=== PATIENT | male | born 1980 | race Caucasian/White ===

== ENCOUNTER 2017-05-23 16:19 | Emergency (ER) | payer OTHER ==
[~2017-05-23] VITALS: Ht 182.9 cm; Wt 90.7 kg
--- NOTE | ~2017-05-23 | EKG ---
[place] [address] [facility] [place] [address] ELECTROCARDIOGRAM REPORT Name: HUMBERTO GUTIERREZ Room #: DEP [facility]#: [id number] Admission: 05/23/17 Attend Phys: Discharge: 05/23/17 Date of : 84 Report #: [id number] THIS REPORT FOR: //name// [facility] ED Test Date: 2017-05-23 Test Time: 16:19:55 Pat Name: HUMBERTO GUTIERREZ Department: Room: Gender: M Rn Concurrent Review: [id number] : 1980 Requested By: Rosa Hickey Order Number: [id number] MD: Jose Perry Measurements Intervals [place] Rate: 96 P: 47 DE: 163 QRS: 49 QRSD: 107 T: 34 QT: 349 QTc: 441 Interpretive Statements Sinus rhythm Probable left atrial enlargement Left ventricular hypertrophy Compared to ECG 05/10/2016 18:59:43 Left ventricular hypertrophy now present Electronically Signed On 05-24-2017 16:40:14 CDT by Jose Perry [email or web address] <ELECTRONICALLY SIGNED> By: Jose Perry MD 05/24/17 1640 18 Jose Perry MD /NASIR
[~2017-05-23 16:19] MED LIST: BACTRIM DS TAB1 EACH PO; HYDROCODONE-AP1 EAC6 PO; KEFLEX500 MG PO; NORCO 5-325 TA1 EACH PO; ZOCOR40 MG PO
[2017-05-23 16:38] LABS: ABSOLUTE NEUTROPHILS 5.5 thou/uL (1.4-8.2); BASOPHILS 0.4 % (0.0-2.0); EOSINOPHILS 4.1 % (0.0-3.0); HEMATOCRIT 42.1 % (42.0-52.0); HEMOGLOBIN 14.6 gm/dL (14.0-18.0); LYMPHOCYTES 18.8 % (24.0-44.0); MCH 30.2 pg (26.0-34.0); MCHC 34.6 g/dL (28.0-37.0); MCV 87.4 fL (80.0-100.0); MONOCYTES 8.4 % (1.0-8.0); PLATELET COUNT 272 thou/uL (150-400); POLYS 68.3 % (36.0-66.0); RBC 4.82 mil/uL (4.50-6.00); RDW 13.1 % (10.5-14.5)
[2017-05-23 16:40] LABS: MANUAL DIFF NO
[2017-05-23 16:45] LABS: ANION GAP 7 mmol/L (7-16); BUN 9 mg/dL (7-18); CALCIUM 8.9 mg/dL (8.5-10.1); CHLORIDE 106 mmol/L (98-107); CO2 28 mmol/L (21-32); CREATININE 1.1 mg/dL (0.7-1.3); GLUCOSE 106 mg/dL (74-106); POTASSIUM 3.5 mmol/L (3.5-5.1); SODIUM 141 mmol/L (136-145)
[2017-05-23 16:53] LABS: TROPONIN-I < 0.04 ng/mL (<0.04-0.07)
[2017-05-23 17:18] VITALS: BP 147/79
== END 2017-05-23 17:26 | disposition home or self-care (01) ==
LOC: ER 16:19
PROVIDERS: Emergency Medicine
DX: R07.89 Other chest pain (principal); E78.00 Pure hypercholesterolemia, unspecified; I25.2 Old myocardial infarction; F17.210 Nicotine dependence, cigarettes, uncomplicated; Z87.19 Personal history of other diseases of the digestive system

== ENCOUNTER 2019-06-17 00:12 | Emergency (ER) | payer OTHER ==
[~2019-06-17] VITALS: Ht 182.9 cm; Wt 90.7 kg
[~2019-06-17 00:12] MED LIST changes: +DOXYCYCLINE 10100 MG PO
[2019-06-17] MEDS ORDERED: REFRESH TEARS15 ML OPHTHALMIC (00:52)
[2019-06-17] MEDS ORDERED: ERYTHROMYCIN E3.5 G2 OPHTHALMIC (00:52)
[2019-06-17] MEDS ORDERED: NORCO 5-325 TA1 EAC1 PO (00:52)
[2019-06-17 01:13] VITALS: BP 120/70
== END 2019-06-17 01:14 | disposition home or self-care (01) ==
LOC: ER 00:12
DX: S05.02XA Injury of conjunctiva and corneal abrasion without foreign body, left eye, initial encounter (principal); H16.133 Photokeratitis, bilateral; E78.5 Hyperlipidemia, unspecified; F17.210 Nicotine dependence, cigarettes, uncomplicated; Z91.030 Bee allergy status; X58.XXXA Exposure to other specified factors, initial encounter; Y93.9 Activity, unspecified; Y92.89 Other specified places as the place of occurrence of the external cause; Y99.8 Other external cause status

== ENCOUNTER 2019-12-23 19:34 | Inpatient (IN) | payer OTHER ==
[~2019-12-23] VITALS: Ht 182.9 cm; Wt 77.7 kg
--- NOTE | ~2019-12-23 | EMS ---
[place] [address] EMS Patient Care Report Name: HUMBERTO GUTIERREZ JR Room #: PRE [facility]#: [id number] Admission: Attend Phys: Discharge: Date of : 84 Report #: [id number] THIS REPORT FOR: //name// Report Transmitted: 12/23/2019 19:15 EMS Care Summary [place], [place]/[facility] Incident [id number] @ 12/23/2019 18:49 Incident Location [facility] [address] [place] [address] Patient HUMBERTO GUTIERREZ Male, 39 Years 1980 Patient Address [address] [place] [address] Patient History Hypertension (HTN),Stroke/CVA, Patient Allergies No known allergies, Chief Complaint CHEST PAIN/ GENRALIZED NUMBNESS Disposition Transported No Lights/[place] Dispatch Reason Chest Pain (Non-Traumatic) Transported To [facility] Narrative ARRIVED ON SCENE FOR A 39 YEAR OLD MALE PT WITH CHEST PAIN AND GENERALIZED NUMBNESS. PT CONTACT WAS MADE WITH THE PT'S FAMILY IN THE PT'S BEDROOM. PT WAS ALERT AND ORIENTATED TIMES 4 WITH A GCS OF 15. PT STATED HE LEFT [facility] FROM [facility] A WEEK AGO WITH SIMILAR SYMPTOMS AND LEFT DIANA 2 DAYS AGO AND WAS DIAGNOSED WITH LEFT LOWER LOBE PNEUMONIA. PT DENIED SHORTNESS OF BREATH, FEVER, OR A COUGH. PT ALSO DENIED NAUSEA OR RADIATING CHEST PAIN. PT STATED HE HAS [address] [place] [address] EMS Patient Care Report Name: HUMBERTO GUTIERREZ JR Room #: PRE ER M.R.#: [id number] Admission: Attend Phys: Discharge: Date of : 84 Report #: [id number] BEEN NUMB FOR THE PAST 3 DAYS AND WAS UNABLE TO WALK. PT WAS ASSISTED INTO A STAIRCHAIR AND WAS HELPED TO THE COT OUTSIDE. PT WAS PLACED ON THE COT IN A POSITION OF COMFORT AND WAS SECURED VIA 2 SEATBELTS. PT WAS TRANSPORTED TO AND LOADED INTO THE COT AND HOOKED UP TO THE MONITOR INCLUDING A 12 LEAD. PT WAS TRANSPORTED TO [facility] PER PT CHOICE WITH NO CHANGES EN ROUTE. PT WAS TAKEN TO ER BED 10 WHERE TRANSPORT REPORT WAS GIVEN TO THE RECEIVING STAFF. ER NURSE SIGNED FOR TRANSFER OF CARE AND PT WAS ABLE TO SIGN EMS DOCUMENTATION HIMSELF. EMS WENT BACK INTO SERVICE. Initial Vitals @19:13P: 98,CO: 5,SpO2: 99,NV Suspected: false @19:09P: 104,BP: 151/101, @19:20P: 102,R: 20,BP: 167/80,Pain: 8/10,GCS: 15,CO: 6,SpO2: 97,Revised Trauma: 12, @18:58P: 106,R: 20,BP: 150/95,Pain: 8/10,GCS: 15,CO: 2,SpO2: 100,Revised Trauma: 12, @19:09P: 102,Glucose: 120,SpO2: 99, Assessments @18:56MENTAL:Person Oriented,Time Oriented,Place Oriented,Event Oriented,SKIN:No Abnormalities,HEENT:Eyes: Left Pupil: 4-mm,Head/Face: Swelling,Eyes: Right: Other,Neck/Airway: No Abnormalities,LUNG SOUNDS:General: No Abnormalities,Left Upper: No Abnormalities,Right Upper: No Abnormalities,Left Lower: No Abnormalities,Right Lower: No Abnormalities,ABDOMEN:General: No Abnormalities,Left Upper: No Abnormalities,Right Upper: No Abnormalities,Left Lower: No Abnormalities,Right Lower: No Abnormalities,PELVIS//GI:No Abnormalities,EXTREMITIES:Left Leg: Abnormal Sensation,Right Arm: Weakness,Left Arm: Weakness,Right Arm: Abnormal Sensation,Right Leg: Weakness,Right Leg: Abnormal Sensation,Left Arm: Abnormal Sensation,Left Leg: Weakness,PULSE:Radial: 2+ Normal,NEURO:No Abnormalities,@19:25MENTAL:Place Oriented,Event Oriented,Person Oriented,Time Oriented,SKIN:No Abnormalities,HEENT:Eyes: Right: Other,Head/Face: Swelling,Eyes: Left Pupil: 4-mm,Neck/Airway: No Abnormalities,LUNG SOUNDS:General: No Abnormalities,Left Upper: No Abnormalities,Right Upper: No Abnormalities,Left Lower: No Abnormalities,Right Lower: No Abnormalities,ABDOMEN:General: No Abnormalities,Left Upper: No Abnormalities,Right Upper: No Abnormalities,Left Lower: No Abnormalities,Right Lower: No Abnormalities,PELVIS//GI:No Abnormalities,EXTREMITIES:Right Arm: Weakness,Left Arm: Abnormal Sensation,Left Arm: Weakness,Right Arm: Abnormal Sensation,Left Leg: Abnormal Sensation,Left Leg: Weakness,Right Leg: Weakness,Right Leg: Abnormal Sensation,PULSE:NEURO:No Abnormalities, Impression Chest Pain, Other (Non-Cardiac) Procedures [address] [place] [address] EMS Patient Care Report Name: HUMBERTO GUTIERREZ JR Room #: PRE M.R.#: [id number] Admission: Attend Phys: Discharge: Date of : 84 Report #: [id number] @19:1312-Lead ECGResponse: UnchangedSucceeded@18:56ALS AssessmentResponse: UnchangedSucceeded@19:15Saline Lock 5cc (18 ga) Site: Antecubital-LeftResponse: UnchangedSucceeded@19:12StairchairResponse: Unchanged Timeline 18:47,Call Received 18:47,Dispatch Notified 18:49,Dispatched 18:50,En Route 18:54,On Scene 18:56,At Patient 18:56,ALS Assessment,Response: UnchangedSucceeded, 18:58,BP: 150/95 M,PULSE: 106,RR: 20 R,SPO2: 100 Ox,ETCO2: ,BG: ,PAIN: 8,GCS: 15, 19:09,BP: / M,PULSE: 102,RR: R,SPO2: 99 Ox,ETCO2: ,B,PAIN: ,GCS: , 19:09,BP: 151/101 M,PULSE: 104,RR: R,SPO2: Ox,ETCO2: ,BG: ,PAIN: ,GCS: , 19:12,Stairchair,Response: Unchanged 19:13,12-Lead ECG,Response: UnchangedSucceeded, 19:13,BP: / M,PULSE: 98,RR: R,SPO2: 99 Ox,ETCO2: ,BG: ,PAIN: ,GCS: , 19:15,Saline Lock 5cc 18 ga Site: Antecubital-Left,Response: UnchangedSucceeded, 19:16,Depart Scene 19:20,BP: 167/80 M,PULSE: 102,RR: 20 R,SPO2: 97 Ox,ETCO2: ,BG: ,PAIN: 8,GCS: 15, 19:29,At Destination 19:52,Call Closed Disclaimer v1.1 Copyright 2020 [employer] This EMS Care Summary contains data elements from the applicable legal record (which may be displayed differently). It is designed to provide pertinent information for the following purposes: continuity of care, clinical quality, and state data reporting. The complete legal record is available to ED staff and administrators of the receiving hospital in ES's Patient Tracker. All data is provided "as is."
--- NOTE | ~2019-12-23 | EEG ---
[facility] [place] [address] ELECTROENCEPHALOGRAM Name: HUMBERTO GUTIERREZ Room #: 435-P ADM IN M.R.#: [id number] Admission: 12/23/19 Attend Phys: Miguel Ángel Gonsalez MD Discharge: Date of : 84 Report #: [id number] THIS REPORT FOR: //name// CC: [facility] physician/PCP Miguel Ángel Gonsalez INTERPRETATION: This patient is being evaluated for altered mental status. EEG was done by placing the electrode by standard 10-20 system of electrode placement. Both referential and sequential montages were used for recording. Background activity in this patient's EEG is about 7-8 Hz and 30 microvolts. It becomes slower than that. Photic stimulation was unremarkable. Throughout the record, no active epileptiform activity was noticed. IMPRESSION: This patient's EEG demonstrates intermixed slowing on both sides which is a nonspecific abnormality, which can occur with dementia, encephalopathy, effect of psychotropic medication, etc. Clinical correlation is recommended. By: [id number] Vishal Garner MD /nt
[~2019-12-23 19:34] MED LIST changes: +ERYTHROMYCIN E3.5 G2 OPHTHALMIC; +NORCO 5-325 TA1 EAC1 PO; +REFRESH TEARS15 ML OPHTHALMIC
[2019-12-23 19:35] VITALS: BP 152/96
[2019-12-23 19:51] LABS: BASOPHILS 0.6 % (0.0-2.0); EOSINOPHILS 5.2 % (0.0-3.0); HEMATOCRIT 40.9 % (42.0-52.0); HEMOGLOBIN 14.1 gm/dL (14.0-18.0); LYMPHOCYTES 17.8 % (24.0-44.0); MCH 30.2 pg (26.0-34.0); MCHC 34.4 g/dL (28.0-37.0); MONOCYTES 9.3 % (1.0-8.0); PLATELET COUNT 397 thou/uL (150-400); POLYS 67.1 % (36.0-66.0); RBC 4.65 mil/uL (4.50-6.00); RDW 13.1 % (10.5-14.5); WBC 11.9 thou/uL (4.0-11.0)
[2019-12-23 19:56] LABS: ANION GAP 6 mmol/L (7-16); BUN 9 mg/dL (7-18); CALCIUM 10.2 mg/dL (8.5-10.1); CHLORIDE 101 mmol/L (98-107); CO2 31 mmol/L (21-32); GLUCOSE 104 mg/dL (74-106); POTASSIUM 3.5 mmol/L (3.5-5.1); SODIUM 138 mmol/L (136-145)
[2019-12-23 20:06] LABS: ALBUMIN 3.2 g/dL (3.4-5.0); SGOT 31 U/L (15-37); SGPT 50 U/L (30-65); TOTAL BILIRUBIN 0.7 mg/dL (<0.1-1.0); TOTAL PROTEIN 7.5 g/dL (6.4-8.2); TROPONIN-I <0.06 ng/mL (<0.06)
[2019-12-24 00:11] VITALS: BP 148/83
[2019-12-24 01:47] VITALS: BP 123/69
--- NOTE | 2019-12-24 04:06 | NUR ---
PT ADMITTED FROM THE ED TO THE UNIT AT ABOUT 0050.PT IS A/O X4.PT IS UNABLE TO WALK DUE TO WEAKNESS.PT IS ON ROOM AND COMPLAAINS OF CHEST PAIN NON CARDIAC.PT IV ACCESS ON LAC 18G.PT HAS REDNESS AND DISCHARGE ON RT EYE.EKG DONE WITH NORMAL SINUS RHYTHM.ADMISSION EDUCATION AND ASSESSMENT COMPLETED AND CONSENTS SIGNS,PT SKIN INTACT.WILL CONTINUE TO MONITOR PER POC
[2019-12-24 04:42] VITALS: BP 140/86
[2019-12-24 08:20] VITALS: BP 141/77
[2019-12-24 16:54] VITALS: BP 121/66
--- NOTE | 2019-12-24 19:53 | NUR ---
VSS-AFEBRILE. LUNGS COURSE IN ALL OLIVEIRA BILATERALLY. CALM AND COOPERATIVE UNTIL END OF SHIFT. STATED THAT HE WANTED TO LEAVE AMA BACAUSE WE WERENT "DOING ANYTHING" TO HELP HIM. PATIENT WAS EDUCATED ON POC, SEEMEDCONFUSED AT TIMES. SECURITY CALLED DUE TO PATIENT SPITTING AND THROWING CALL LIGHT. CALMED. AND IS RESTING QUIETLY, BUT WAS INFORMED THAT HE NEEDS TO GIVE ANTIBIOTICS TIME TO WORK, HE VERBALIZED UNDERSTANDING. RIGHT EYE SWOLLEN, RED, AND HAS THICK, GREEN DISCHARGE. WARM COMPRESSES APPLIED ALL SHIFT, WELL PRESCRIBED EYE DROPS. POOR APPETITE. CALLS APPROPRIATELY FOR ANY NEEDED ASSISTANCE.
[2019-12-25 04:05] VITALS: BP 126/74
--- NOTE | 2019-12-25 05:24 | NUR ---
PT LYING IN BED. VOIDING PER URINAL. LORTAB PROVIDING PAIN RELIEF. RESTING COMFORTABLY. NO NEEDS VOICED. CALL LIGHT WITHIN REACH. FREQUENT OBSERVATION.
[2019-12-25 07:17] VITALS: BP 128/75
[2019-12-25 09:09] VITALS: BP 143/91
[2019-12-25 12:33] LABS: AMP/METHAMP POSITIVE (Negative); BARBITURATES Negative (Negative); BENZODIAZEPINES Negative (Negative); COCAINE Negative (Negative); METHADONE Negative (Negative); OPIATES POSITIVE (Negative); PCP Negative (Negative)
--- NOTE | 2019-12-25 15:41 | NUR ---
PT ADMITTED RELATED TO UNABLE TO WALK,REDNESS ON RIGHT EYE. CM REVIEWED CHART AND SPOKE WITH CARE TEAM. CM CALLED PT'S THIS AFTERNOON AND PT ANSWERED. CM ROLE INTRODUCED. PT STATED THAT HE WOULD TALK TO CM LATER. CM NOTIFIED NURSE. CM TO ATTEMPT PT TO PT TOMORROW. CM TO FOLLOW INDICATED WITH DC PLANNING. PT IS LISTED PATIENT PAY IS IS ANTICIAPTED THAT PT MAY NEED ASSISTANCE TO FILL MED UPON DC.
[2019-12-25 16:42] LABS: HEMOGLOBIN 14.2 gm/dL (14.0-18.0); MCHC 33.8 g/dL (28.0-37.0); MCV 88.8 fL (80.0-100.0); RBC 4.73 mil/uL (4.50-6.00); RDW 13.2 % (10.5-14.5); WBC 7.9 thou/uL (4.0-11.0)
[2019-12-25 17:08] VITALS: BP 132/52
--- NOTE | 2019-12-25 19:31 | NUR ---
VSS-AFEBRILE. LUNGS DIMINISHED IN ALL OLIVEIRA BILATERALLY, PLACED ON 2LNC FOR COMFORT. DEMANDS TO LEAVE AMA. INFORMED PATIENT THAT IF HE LEAVES AMA, DR GRAFF HAS STATED THAT HE WILL NOT BE READMITTED. PATIENTS MOTHER AND MARCELLOE HAVE BOTH REFUSED TO PICK HIM UP. AFTER BEING TOLD THIS INFORMATION, AND THAT [facility] WILL NOT PROVIDE A TAXI, HE SAID HE WOULD STAY. C/O GENERALIZED BODY ACHES AND PAINS, AND SOA. CAN BE RUDE AND OFFENSIVE WITH STAFF.
[2019-12-25 19:45] VITALS: BP 133/56
[2019-12-26 05:10] VITALS: BP 110/62
--- NOTE | 2019-12-26 05:30 | NUR ---
ASSESSED AT START OF SHIFT. PT RESTING IN BED. IV INTACT AND ABX GIVEN. PAIN MED GIVEN FOR GENERALIZIED PAIN. RT EYE RED AND SLIGHLTY SWOLLEN. EYE DROPS GIVEN. FALL PREC IN PLACE FOR WEAKNESS. CALL LIGHT IN REACH AND WILL CONT WITH POC TILL EOS.
[2019-12-26 07:07] LABS: HIV ANTIBODY Non Reactive (Non Reactive)
--- NOTE | 2019-12-26 07:23 | HC ---
[facility] [place] [address] CONSULTATION Name: HUMBERTO GUTIERREZ JR Room #: 447-P ADM IN M.R.#: [id number] Admission: 12/23/19 Attend Phys: Miguel Ángel Gonsalez MD Discharge: Date of : 84 Report #: [id number] THIS REPORT FOR: cc: SOPHIE - No family physician/PCP SOPHIE - No family physician/PCP Hollis Armstrong MD ~ CC: [facility] physician/PCP Miguel Ángel Gonsalez INFECTIOUS DISEASE CONSULTATION REASON FOR CONSULTATION: I was asked to evaluate concerning periorbital cellulitis and dental infection. HISTORY OF PRESENT ILLNESS: The patient is a 39-year-old with underlying history of recreational drug use. Most recently reports methamphetamine use. Also, has hypertension and hyperlipidemia. He has been sick for about 2 weeks. He has been in and out of the hospital for these same symptoms with weakness, dizziness, instability, some pharyngitis and hoarse voice with minimal cough. Does have some issues with swallowing. He has been worked up at both [facility] and [facility]. Apparently, he was incarcerated, and was taken back to [facility]. Unclear exactly his legal status. These initial symptoms were in May. Was recently at [facility], although left against medical advice. He has had CT scans of his head CTA of the head and neck as well as MRI scans, which showed no intracranial abnormalities. By history, has a negative echocardiogram. He has had an EEG and a transesophageal echocardiogram along with an EEG. He has had gastroesophageal reflux diagnosed. More recently was treated for healthcare-associated pneumonia. Again, left against advice, but did finish a course of doxycycline. Main complaint has been intermittent cough, difficulty swallowing and inability to walk. Denies any nausea, vomiting or diarrhea. He fell and hit his right eye. Now it is swollen and erythematous. Denies any recent IV drug use. He does smoke methamphetamines. No nausea, vomiting or diarrhea. No dysuria or frequency. No arthritis. No back pain. No previous psychiatric complaints. REVIEW OF SYSTEMS: A 14-point review of systems was negative other than what has been described above. ALLERGIES: BEE STINGS. MEDICATIONS: As noted on his DEC, now on vancomycin and Zosyn. PAST MEDICAL HISTORY: Surgery on his right shoulder, gastric ulcer, hyperlipidemia, [place] in 2001, MRSA right hip 2-3 years ago, hepatitis C, untreated. FAMILY HISTORY: Hypertension. [facility] [address] [place] [address] CONSULTATION Name: HUMBETRO GUTIERREZ Room #: 447-P [facility] IN M.R.#: [id number] Admission: 12/23/19 Attend Phys: Miguel Ángel Gonsalez MD Discharge: Date of : 84 Report #: [id number] SOCIAL HISTORY: Smoker of cigarettes. No alcohol or methamphetamine use. PHYSICAL EXAMINATION: VITAL SIGNS: He is afebrile and hemodynamically stable. GENERAL: He was lying in bed, did not want to get up, but he did respond and was able to give a reasonable history. HEENT: Right periorbital swelling with erythema and abrasions. He had small amount of drainage from his eye. There was ecchymosis in the region. Had evidence of conjunctivitis. Pupils are equal, round and reactive. No other skin lesions noted other than multiple tattoos. No palpable adenopathy. Eyes: Extraocular muscles intact. Mouth with mild posterior oropharynx injection. No specific weakness identified, was able to move his soft palate. NECK: Supple, with no thyromegaly or mass. LUNGS: Clear to auscultation. HEART: Regular, without murmur, gallop or rub. ABDOMEN: Soft, nontender with no hepatosplenomegaly or mass. GENITORECTAL: Not performed. EXTREMITIES: Without clubbing, cyanosis or edema. NEUROLOGIC: Cranial nerves were intact. Strength in his upper and lower extremities was symmetric and within normal limits. Deep tendon reflexes -1 on the right knee jerk, normal on the left. Sensation to touch both upper and lower extremities is normal. When I sat him up, he was able to get up on his own. Sitting to the side of the bed, he would lean toward the right. Ytre-az-gsod testing was normal. He is able to toe tap equally on both sides. Mood was within normal limits, although he kept asking to go home. LABORATORY STUDIES: Reviewed. Microbiology reports reviewed. MRI scan reviewed. Chest x-ray reviewed. Drug screen reviewed. CT of the head reviewed. IMPRESSION: A 39-year-old with complaints of weakness and inability to walk. Appears to have some ataxic component here for I am finding no focal muscle weakness. He does have swelling to his right eye that he reports trauma to. Also, has some posterior oropharynx injection, but no definite abscess evident. He has dental caries and apical abscesses noted on MRI scan. This process has been going on for several weeks. Other issue is his drug use, which may be a factor here as well. RECOMMENDATIONS: We will continue treatment for his sinusitis and apical abscesses. I would like Neurology to evaluate and assess for any other [facility] [address] [place] [address] CONSULTATION Name: HUMBERTO GUTIERREZ Room #: 447-P ADM IN M.R.#: [id number] Admission: 12/23/19 Attend Phys: Miguel Ángel Gonsalez MD Discharge: Date of : 84 Report #: [id number] structural abnormality. We will need to obtain further records from [facility] and [facility]. <ELECTRONICALLY SIGNED> By: Hollis Armstrong MD 12/26/19 0723 1530 1559 Hollis Armstrong MD /nt
[2019-12-26 08:39] VITALS: BP 113/70
--- NOTE | 2019-12-26 14:24 | NUR ---
CM CALLED INTO PT'S ROOM THIS DAY AND SPOKE WITH PT. HE INDICATED HE HAD BEEN LIVING IN A HOUSE WITH HIS SIG OTHER AND BROTHER WITH 3 STEPS TO ENTER WITH HANDRAIL. 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 ST SAW PT AND RECOMMENDED MECHSFT DIET WITH REG LIQUIDS. PT REFUSED OT. PT ATTEMPTED AMBULATION WITH PT BUT HAD LOB AND REFUSED TO REATTEMPT. PT INDICATED HE WANTED TO GO HOME AND REITERATED HE WANTED TO GO HOME TODAY. PT ASKED IF WE COULD GIVE HIM A WALKER ALTHOUGH PT HASN'T INDICATED HE IS SAFE FOR USE OF A FWW. 5N IS ASSESSING FOR POSSIBLE ADMISSION. NEURO SAW PT AND HE HAD AN MRI WITH CONTRAST THAT INDICATED THAT THERE ARE SOME LESIONS PRESENT. PT TO HAVE MRI OF CERVICAL, THORACIC AND LUMBAR SPINE. CM SPOKE WITH PT'S NURSE TO NOTIFY HER THAT PT INDICATED HE WANTED TO LEAVE. CM TO FOLLOW INDICATED WITH DC PLANNING.
[2019-12-26 16:26] VITALS: BP 113/59
[2019-12-26 19:35] VITALS: BP 137/70
--- NOTE | 2019-12-26 19:55 | NUR ---
REMAINS DEFIANT AND OCCASIONALLY STATES HE WANTS TO LEAVE AMA. ASSURED PATIENT THAT HE HAS THAT RIGHT, HE THEN DECIDES THAT HE WANTS TO STAY. REFUSED ALL THERAPIES TODAY, REFUSED SHOWER WELL. EDUCATED ON IMPORTANCE OF FOLLOWING THE PLAN OF CARE, AND ATTEMPTED TO EXPLAIN THE RESULTS OF SOME OF HIS TESTS, PATIENT FELL ASLEEP DURING THIS TIME. FALL PRECAUTIONS IN PLACE.
[2019-12-27 03:07] LABS: SYPHILIS AB Reactive (Non Reactive)
[2019-12-27 04:15] VITALS: BP 147/83
--- NOTE | 2019-12-27 04:28 | NUR ---
ASSESSED AT START OF SHIFT, VSS. IV INTACT AND ABX INFUISING. PAIN MEDS GIVEN FOR GENERALIZIED PAIN. AND NIGHT TIME XANAX GIVEN. PT SLEPT THROUGH THIS SHIFT. URINAL AT BEDSIDE DUE TO BLE WEAKNESS. WILL CONT TO MONITOR TILL EOS.
[2019-12-27 08:22] VITALS: BP 156/117
--- NOTE | 2019-12-27 11:39 | NUR ---
FAXED FACE SHEET TO KAMILA AT THE [facility] RECEIVED CONFIRMATION TO HELP WITH MEDICAID APPLICATION. DP TO FOLLOW.
--- NOTE | 2019-12-27 13:59 | NUR ---
CARE TEAM INDICATED THAT EKG WAS ORDERED DUE TO CO/ CHEST PAIN. PSYC CONSULTED PT IS REFUSING THERAPY AND STILL EXPRESSING DESIRE TO LEAVE [place] OR DISCHARGE. CM TO FOLLOW INDICATED WITH DC PLANNING.
[2019-12-27 16:05] VITALS: BP 119/70
[2019-12-27 19:10] VITALS: BP 116/60
--- NOTE | 2019-12-27 19:55 | NUR ---
PT REPORTED HAVING CHEST PAIN AND SOA AT APPROX. 0930 THIS AM. EKG AND TROPONIN LAB DRAWN. PRN PAIN AND ANXIETY MEDS GIVEN. BP 128/70, O2 SAT 97%, PULSE 92. EKG AND TROPONIN NORMAL.
[2019-12-28 04:00] VITALS: BP 118/76
--- NOTE | 2019-12-28 04:00 | NUR ---
ASSESSED AT START OF SHIFT. PAIN MEDS AND EVEINING MEDS GIVEN PT ERIK IT WELL. IV INTACT AND ABX INFUISING. PT USES URINAL AT BEDSIDE DUE TO WEAKNESS. DENIES N/V OR CHEST PAIN. FALL PREQ IN PLACE AND WILL CONT TO MONITOR TILL EOS.
[2019-12-28 07:28] VITALS: BP 123/79
--- NOTE | 2019-12-28 16:21 | NUR ---
PT SEEN BY ID, PSYCH, ENT, NEURO IT HAD BEEN INDICATED THAT PT ISN'T COMPETANT TO MAKE MEDICAL DECISIONS AND THEREFORE CAN'T LEAVE AMA. CM TO FOLLOW UP WITH PT'S TWO BROTHERS LISTED IN CONTACTS TO SEE WHAT LEVEL OF SUPPORT THEY MIGHT BE ABLE TO OFFER. CM TO FOLLOW INDICATED WITH DC PLANNING.
[2019-12-28 16:48] VITALS: BP 130/80
[2019-12-28 19:19] VITALS: BP 121/60
--- NOTE | 2019-12-28 20:20 | NUR ---
PT KNOW HIS NAME, PT CAN FOLLOW SOME COMMANDS, PT IS AGITATION AT TIME, PT IS HIGH FALL RISK , PT IS CONTINUING IV ABX AND PAIN /ANXEITY MANAGEMENT, PT HAS NEW PICC LINE ABOUT 1700PM, PT'S VS ARE STABLE AT THIS TIME.
[2019-12-28 22:45] LABS: PROTIME 10.2 Seconds (9.3-11.4)
--- NOTE | 2019-12-29 00:09 | NUR ---
RISK, BENEFITS, AND ALTERNATIVE TREATMENT DISCUSSED WITH THE PATIENT RELATED TO PICC PROCEDURE. TEACHING GIVEN RELATED TO POSSIBLE COMPLICATIONS SUCH BLEEDING, INFECTION, CLOT, OR VESSEL PERFORATION. INSTRUCTION GIVEN RELATED TO CLABSI PREVENTION WITH LITERATURE PROVIDED. PATIENT VOICES UNDERSTANDING TO THE ABOVE AND GIVES CONSENT. WRITTEN CONSENT OBTAINED. DOUBLE LUMEN PICC PLACED TO RUE BASILIC VEIN. ONE STICK AND NO COMPLICATIONS PATIENT TOLERATED WELL. PICC LENGTH= 43CM. EXTERNAL =4CM. CHEST XRAY CONFIRMED PLACEMENT WITH TIP OF PICC IN DISTAL SVC. PATIENT'S RN NOTIFIED OKAY TO USE PICC.
[2019-12-29 04:09] VITALS: BP 137/84
[2019-12-29 07:09] VITALS: BP 123/69
--- NOTE | 2019-12-29 07:45 | NUR ---
PT ALERT AND ORIENTED THRO THE NIGHT.USED URINAL. C/O FACIAL PAIN, RECEIVED HYDROCODONE WITH RELIEF. PT BEEN AFEBRILE. RECEIVED IV ABTS.PT BEEN HAVING INTERMITTENT HICCUPS. OCCASIONALLY ASKS WHEN HE WILL GO HOME. FALL PREC IN PLACE.
--- NOTE | 2019-12-29 09:18 | 2DMMODE ---
[facility] [address] [place] [address] 2 D/M-MODE ECHOCARDIOGRAM Name: HUMBERTO GUTIERREZ Room #: 447-P ADM IN M.R.#: [id number] Admission: 12/23/19 Attend Phys: Miguel Ángel Gonsalez MD Discharge: Date of : 84 Report #: [id number] THIS REPORT FOR: cc: FAM - No family physician/PCP FAM - No family physician/PCP Justus Mccallum MD [facility] ~ APPROVED REPORT Study performed: 12/29/2019 08:27:41 EXAM: Comprehensive 2D, Doppler, and color-flow Echocardiogram Patient Location: Bedside Room #: 447 Status: routine BSA: 2.07 HR: 96 bpm BP: 123/69 mmHg Rhythm: NSR Other Information Study Quality: Good Technically limited study due to uncooperative patient. Not all measurements taken. Indications Chest pain, HTN, Sepsis, meth abuse. 2D Dimensions IVSd: 12.30 (7-11mm) LVOT Diam: 20.71 (18-24mm) LVDd: 44.11 mm PWd: 11.00 (7-11mm) LVDs: 27.44 (25-40mm) Aortic Valve AoV Peak Wilber.: 1.23 m/s AO Peak Gr.: 6.06 mmHg LVOT Max P.31 mmHg LVOT Max V: 1.15 m/s MENG Vmax: 3.15 cm2 Mitral Valve E/A Ratio: 0.8 MV Decel. Time: 190.66 ms MV E Max Wilber.: 0.70 m/s MV A Wilber.: 0.83 m/s [facility] [address] [place] [address] 2 D/M-MODE ECHOCARDIOGRAM Name: BRENDAHUMBERTO LLOYD Room #: 447-P [facility] IN .R.#: [id number] Admission: 12/23/19 Attend Phys: Miguel Ángel Gonsalez MD Discharge: Date of : 84 Report #: [id number] MV PHT: 55.29 ms Pulmonary Valve PV Peak Wilber.: 1.42 m/s PV Peak Gr.: 8.11 mmHg Pulmonary Vein P Vein S: 0.59 m/s P Vein D: 0.41 m/s P Vein S/D Ratio: 1.44 Tricuspid Valve RAP Estimate: 5.00 mmHg Left Ventricle The left ventricle is normal size. There is normal LV segmental wall motion. Borderline concentric left ventricular hypertrophy. Left ventricular systolic function is normal. LVEF is 60-65%. Mild diastolic dysfunction is present (impaired relaxation pattern). Right Ventricle The right ventricle is normal size. The right ventricular systolic function is normal. Atria The left atrium size is normal. The right atrium size is normal. Aortic Valve The aortic valve is normal in structure. No aortic regurgitation is present. There is no aortic valvular stenosis. Mitral Valve The mitral valve is normal in structure. There is no mitral valve regurgitation noted. Tricuspid Valve The tricuspid valve is normal in structure. There is no tricuspid valve regurgitation noted. Unable to assess PA pressure. Pulmonic Valve The pulmonary valve is normal in structure. There is no pulmonic valvular regurgitation. Great Vessels The aortic root is normal in size. IVC is normal in size and [facility] [address] [place] [address] 2 D/M-MODE ECHOCARDIOGRAM Name: HUMBERTO GUTIERREZ Room #: 447-P [facility] IN .R.#: [id number] Admission: 12/23/19 Attend Phys: Miguel Ángel Gonsalez MD Discharge: Date of : 84 Report #: [id number] collapses >50% with inspiration. Pericardium There is no pericardial effusion. <Conclusion> Left ventricular systolic function is normal. There is normal LV segmental wall motion. LVEF is 60-65%. Mild diastolic dysfunction Structural valvular disease was absent. No significant regurgitant or stenotic lesion Unable to assess pulmonary artery pressure. There is no pericardial effusion. <ELECTRONICALLY SIGNED> By: Justus Mccallum MD, [facility] 12/29/19916 6 6 Justus Mccallum MD, FACC /INF
--- NOTE | 2019-12-29 12:40 | NUR ---
ASSUMED CARE OF PT AT 0700. PT ALERT AND ORIENTED, WANTING TO GO HOME. ENOCURAGED HIM TO WORK WITH THERAPIES AND DO THE EXAMS AND TESTS WE ARE ASKING OF HIM TO TRY AND ACHIEVE THAT GOAL. PT URINATING GOOD, SOMETIMES IN URINAL, SOMETIMES IN THE BED. TOLERATING PO. DL PICC IN HOMA FLUSHES WITHOUT ISSUE, BUT DOES NOT DRAW BLOOD AT THIS TIME. IVF AND ANTIBIOTICS INFUSING WITHOUT PROBLEMS. R EYE IS CRUSTY, GTTS APPLIED. PT C/O PAIN "ALL OVER". WILL MEDICATE IS NEEDED. CONTINUE TO MONITOR
--- NOTE | 2019-12-29 14:34 | NUR ---
CM CALLED ALL NUMBERS LISTED IN CHART AND ONLY WORKING NUMBER WAS THAT OT PT'S BROTHER RADHA EPPS [phone]. HE PROVIDED PT'S MOTHER'S NAME AND NUMBER PATEL SANTIAGO . CM SPOKE WITH HER SHE WAS AT PT'S HOUSE WITH PT'S GIRLFRIEND KIRILL WHO IS AND THE BOTHER WHO LIVES WITH PT CINTHIA. SHE INDICATED THAT SHE HAD BEEN IN CONTACT WITH THE NURSING STAFF HERE AND IS AWARE OF PT'S CURRENT CONDITION. 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 SHE INIDCATED THAT SHE WOULD BE WILLING AND ABLE TO ASSIST IN MAKING MEDICAL DECISIONS IF PT IS CAPABLE TO ELECTING DPOA. FAMILY HAD ASKED IF THEY CAN "FACE TIME OR VIDEO CALL WITH PT" CM INDICATED THAT CM WOULD SPEAK WITH STAFF ABOUT THIS ABILITY AND IT'S APPROPRIATENESS. MOTHER INDICATED THAT SHE WOULD ASSIST WITH MEDICAID APPLICATION IF SHE IS ABLE. CM TO FOLLOW INDICATED WITH DC PLANNING.
[2019-12-29 15:50] VITALS: BP 122/94
[2019-12-29 20:00] VITALS: BP 130/48
[2019-12-30 04:00] VITALS: BP 115/62
--- NOTE | 2019-12-30 06:25 | NUR ---
PT BEEN SLEEPING ALL THROUGH. ANSWERS QUESTIONS.BEEN USING URINAL. GIVEN PAIN MEDS X 1 FOR C/O STOMACH/EPIGASTRIC PAIN- SCHEDULED IV FAMOTIDINE GIVEN WHICH ALSO SEEMS TO HAVE HELPED. R EYE STILL RED WITH SOME CRUSTING AND SWELLING-USING EYE DROPS. GETTING IV ABTS THRO HOMA PICC. LOW GRADE TEMP OF 99.6 LAST NIGHT, RELEIVED BY NORCO.ROOM AIR SATTING OKAY. HE HAS A CONGESTED COUGH. CONTINOUS HICCUPS, STARTED ON PRN THORAZINE.NO BM LAST NOC. ENC TO DRINK WATER, ATE SOME ICE CREAM.HE HAS BEEN APPROPRAITE THRO NIGHT, NOT ASKING TO LEAVE.FALL PREC IN PLACE.
[2019-12-30 08:51] VITALS: BP 123/69
--- NOTE | 2019-12-30 08:59 | HC ---
[facility] [place] [address] CONSULTATION Name: HUMBERTO GUTIERREZ Room #: 447-P ADM IN M.R.#: [id number] Admission: 12/23/19 Attend Phys: Miguel Ángel Gonsalez MD Discharge: Date of : 84 Report #: [id number] THIS REPORT FOR: cc: SOPHIE - No family physician/PCP SOPHIE - No family physician/PCP Nigel Olea MD ~ CC: Hollis BARRIOS physician/PCP Miguel Ángel Vázquez MD DATE OF SERVICE: 12/28/2019 SURGEON: Nigel Olea MD REASON FOR CONSULTATION: Otolaryngic evaluation. HISTORY OF PRESENT ILLNESS: The patient is a 39-year-old male admitted through the Emergency Department on 12/23/2019 complaining of ataxia. MRI of the brain without contrast was done 12/25/2019 and compared to a previous head CT of 12/23/2019. This showed some soft tissue thickening over the right periorbital region, which was improved compared to a CT done 2 days prior. No soft tissue mass or abscess was noted and no other specific intracranial symptoms or signs were found. I have reviewed the films and there was minimal mucosal thickening present without air fluid levels in the sinuses, more chronic in nature, and certainly not obstructing. The patient had facial swelling that ultimately was found to be secondary to periapical dental abscesses. In addition, he was noted to have a right periorbital cellulitis that did not appear to be sinugenic in origin. This was seemed to be more consistent with a traumatic injury or laceration or abrasion over the right infraorbital rim. The patient has been poorly compliant with treatment and continues to threaten to leave AMA. Today, he is able to answer questions and denies any double vision. He does seem to have full excursion of his extraocular muscles. The patient has a history of chronic opiate and methamphetamine abuse, probably accounting for his poor dentition and multiple periapical abscesses. He has also been found to have a T2 intense 1 cm lesion over the brainstem. His followup MRI was not convinced that this was infectious in origin. He currently is on vancomycin and has been seen by Dr. Armstrong. Serology has been positive this morning for syphilis. He has been seen by Psychiatry. The note from Dr. Gonsalez and Dr. Vázquez to this morning seems to indicate concern for the patient remaining in the hospital. I have reviewed both the CT scans and MRI. The findings of the facial cellulitis probably are more consistent with his periapical dental abscess. There is no soft tissue abscess in the face that would require otolaryngic surgical intervention. There is no evidence [place] [address] CONSULTATION Name: HUMBERTO GUTIERREZ Room #: 447-P ADM IN M.R.#: [id number] Admission: 12/23/19 Attend Phys: Miguel Ángel Gonsalez MD Discharge: Date of : 84 Report #: [id number] cellulitis. This again appears more traumatic. The patient was recently hospitalized for generalized weakness and dizziness at [facility] from 12/10/2019 to 12/15/2019 and left against medical advice on the . He was also brought to [facility], diagnosed with pneumonia and left AMA. PAST MEDICAL HISTORY: Hypertension, hyperlipidemia, recurrent noncompliance with visits to the Emergency Department. Fracture of the left great toe fracture, inability to walk, laceration of the right hand, preseptal cellulitis of the right eye, improving. Subungual hematoma and ultraviolet keratitis in both eyes. ALLERGIES: BEE STINGS. No other known allergies per the chart. REVIEW OF SYSTEMS: Not possible as the patient is not cooperative with history. PHYSICAL EXAMINATION: GENERAL: Shows a well-developed 39-year-old male seen in his hospital room. He is trying to sleep and irritated that I am talking with him. VITAL SIGNS: Temperature of 97.8, pulse of 79, blood pressure 123/79. HEENT: Facial exam shows area of eschar overlying the inferior orbital rim, appears more traumatic in nature. There is no significant swelling. There is mild ecchymosis of the right eye. Extraocular muscles are completely intact. The patient is able to count fingers and appears to have intact vision grossly. There is no significant asymmetry of facial swelling on the left this morning. The patient was noncompliant with allowing me on evaluation of his mouth. Tongue and floor of mouth are without swelling. NECK: Shows no adenopathy or other masses. Trachea is midline. LABORATORY DATA: Reviewed includes the patient's MRIs and CTs. Most recent CBC was on the showing a white count of 11,900 with a hemoglobin of 14.1, he has had a left shift. Chemistries on the were unremarkable. HIV was nonreactive. Syphilis serology was positive. Drug screen was positive for methamphetamine and opiates on admission. ASSESSMENT: 1. Right preseptal periorbital cellulitis without abscess. This appears to be more traumatic. This is certainly not sinugenic in nature. 2. Multiple dental caries and periapical dental abscesses consistent with the patient's methamphetamine abuse. 3. Abnormal MRI with enhancing 1 cm area around the medulla, etiology unknown. PLAN: 1. From otolaryngic surgical standpoint, I see no need for intervention. The patient is in desperate need of a dentist to address his dental pathology as [facility] [address] [place] [address] CONSULTATION Name: HUMBERTO GUTIERREZ Room #: 447-P ADM IN M.R.#: [id number] Admission: 12/23/19 Attend Phys: Miguel Ángel Gonsalez MD Discharge: Date of : 84 Report #: [id number] soon as possible. Unfortunately, he was at [facility], which could he would have had access to Oral Surgery and dentist here. There are no dentists available at this institution and if this needs to be done, he will need to be transferred. The mucoperiosteal thickening in the sinuses is minimal at best and can be best treated with Fluticasone nasal spray 2 puffs every day and Nasal saline p.r.n. 2. I will defer antibiotic treatment to his prior hospital team and Dr. Armstrong. I will not plan to follow with you, but I am available for any change in status. <ELECTRONICALLY SIGNED> By: Nigel Olea MD 12/30/19 0859 [id number] Nigel Olea MD /nt
--- NOTE | 2019-12-30 11:43 | NUR ---
ASSUMED CARE AT 0700. PT ALERT AND ORIENTED, ANXIOUS AND RESTLESS WANTING TO GO HOME. EXPLAINED HE NEEDED MORE ANTIBIOTICS AND MEDICATED FOR HIS ANXIETY AND PAIN. RA, TOLERATING PO WITH ASPIRATION PRECAUTIONS. USING URINAL WITHOUT COMPLICATIONS. DL PICC NOT DRAWING BLOOD, RED LUMEN WONT FLUSH. PURPLE LUMEN WITHOUT COMPLICATIONS. ENCOURAGE PT TO WORK WITH THERAPIES WHEN HE CAN TO FACILITATE WALKING. WILL CONTINUE TO MONITOR
[2019-12-30 18:14] VITALS: BP 115/65
[2019-12-30 19:45] VITALS: BP 121/64
[2019-12-31 03:10] VITALS: BP 115/67
[2019-12-31 07:22] VITALS: BP 136/85
[2019-12-31 07:31] LABS: ABSOLUTE NEUTROPHILS 4.7 thou/uL (1.4-8.2); BASOPHILS 0.7 % (0.0-2.0); EOSINOPHILS 8.1 % (0.0-3.0); HEMATOCRIT 43.3 % (42.0-52.0); HEMOGLOBIN 14.7 gm/dL (14.0-18.0); LYMPHOCYTES 26.7 % (24.0-44.0); MCH 30.4 pg (26.0-34.0); MCV 89.3 fL (80.0-100.0); PLATELET COUNT 360 thou/uL (150-400); POLYS 54.5 % (36.0-66.0); RBC 4.85 mil/uL (4.50-6.00); RDW 13.3 % (10.5-14.5); WBC 8.7 thou/uL (4.0-11.0)
[2019-12-31 07:40] LABS: ALBUMIN 3.7 g/dL (3.4-5.0); CALCIUM 10.1 mg/dL (8.5-10.1); MAGNESIUM 2.1 mg/dL (1.8-2.4); POTASSIUM 4.1 mmol/L (3.5-5.1); TOTAL BILIRUBIN 0.5 mg/dL (<0.1-1.0); TOTAL PROTEIN 7.8 g/dL (6.4-8.2)
[2019-12-31 08:06] VITALS: BP 136/85
--- NOTE | 2019-12-31 08:31 | NUR ---
PT LYING IN BED. REMAINS VERY IMPULSIVE AND CONFUSED. BED ALARM ACTIVATED. VOIDING PER URINAL WITH ASSISTANCE--DID HAVE AN INSTANCE OF INCONTINENCE. LORTAB PROVIDING PAIN RELIEF. RESTING COMFORTABLY SPORADICALLLY. FREQUENT OBSERVATION.
--- NOTE | 2019-12-31 08:34 | NUR ---
0700--PT BED ALARM SOUNDS--HIGH SCHOOL ACADEMIC COACH RUNS IN AND FINDS PT ON THE GROUND--FALL UNWITNESSED. ORIENTATION STATUS OF PT AT THE OF FALL--CONFUSED--BUT THAT IS THE BASELINE FOR THIS STAY. NO INJURY. FAMILY NOTIFIED VIA VOICE MAIL. PHYSICIAN NOT NOTIFIED AT THIS TIME THE COVERAGE LIST FOR TODAY HAS NOT BEEN RECEIVED AT THIS TIME. A MESSAGE WAS LEFT ON THE HOSPITALIST OFFICE ANSWERING MACHINE.
[2019-12-31 16:15] VITALS: BP 132/72
--- NOTE | 2019-12-31 20:40 | NUR ---
Pt. has been very agitated and striking out at the staff. Iram CONLEY called and notified and new orders given for po seroquel. Sitter at the bedside.
[2019-12-31 21:30] VITALS: BP 140/72
--- NOTE | 2019-12-31 22:00 | NUR ---
Informed by charge nurse (Brenna GILMORE) that pt. had just fallen. Natasha PATEL was sitting with the pt. She informed me that the pt. was sitting at the side of the bed and started to slide. The pt. quickly stood up and went to the floor which was witnessed by MASTER PLANNER. During this time pt. was demonstrating violent behavior by striking out at staff and verbally useing profanity. He is confused and oriented to self. Iram CONLEY/Dr. Gonsalez notified and new orders for soft wrist restraints and Geodon (see orders). Pt. without any injuries. Mother (Tam) notified. VSS. metal fabricating supervisor notified.
[2020-01-01 01:00] VITALS: BP 132/78
[2020-01-01 05:37] VITALS: BP 137/87
--- NOTE | 2020-01-01 06:00 | NUR ---
Pt. has had many periods of aggressive behavior during the night. At one time pt. ripped one off his wrist restraints off by sitting up in the bed pulling hard on it. Pt. is confused and is not redirectable. Security has had to be called due to his violent behavior. He has been observed hitting at the wall and siderails before retraints applied. Pt. yells out profanity at the staff and at times will attempt to strike out with his legs. He will kick at the foot of the bed or even swing both legs over the rails. Medication intervention given (see emar) with poor results. Sitter continues to be at the bedside.
--- NOTE | 2020-01-01 09:10 | NUR ---
Assess due to length of stay. Admit with inability to walk, eye redness. Neurosyphillis, hx meth abuse. Pt having aggressive behaviors recently. ST has assessed; poor dention, mild/moderate dysphagia and on altered consistency diet. Oral supplements of ensure enlive already ordered which pt consumin 50-100% of. Had recently been eating 50-100% of meals past week, but poor intake noted 12/30. No significant wt changes from past weights. Low nutrition risk
--- NOTE | 2020-01-01 15:12 | NUR ---
CARE TEAM INDICATED THAT PT'S CONDITION HAD WORSENED SOMEWHAT. PT IS TO HAVE A SPINAL TAP DONE. PT IS STILL NOT ABLE TO LEAVE AMA. CM TO FOLLOW INDICATED WITH DC PLANNING.
--- NOTE | 2020-01-01 17:13 | NUR ---
PT ASSESSED AT START OF SHIFT. PT AWAKENED THIS AM OFF AND ON. VERONICA WRIST RESTRAINTS IN PLACE PER DR. CH PT IMPUSIVE AND PULING AT LINES. RESTED SOME OFF AND ON. SPEECH DIFFICULT TO UNDERSTAND AT TIMES. SWALLOW PRECAUTIONS PT ASP RISK. PO MEDS NOT GIVEN FOR ASP CONCERN. DRS. GONCALVES AND ALBERT IN TO SEE PT. PT TO HAVE SPINAL TAP IN IR TOMORROW W/ SEDATION RECOMMENDED PER DR. PRICE. HEPARIN TO BE HELD UNTIL AFTER LUMBAR PUNCTURE. PT AWAKENED THIS AFTERNOON AND RIPPED OFF VERONICA WRIST RESTRAINTS AND PULLING AT PICC LINE. SECURITY CALLED TO HELP US CALM PT. SUSSY ART GIVEN W/ FAST RESULTS CALMING PT.
--- NOTE | 2020-01-01 18:43 | NUR ---
ASSUMED CARE OF PT AT 1820. PT WAS A TRANSFER FROM . PT ALERT TO SELF. PT SLEEPING AND CALM UPON TRANSFER WHEN AWAKEN. ABX INFUSING PER ORDER. SITTER AT BEDSIDE. WILL CONTINUE TO MONITOR.
[2020-01-01 20:40] VITALS: BP 138/80
[2020-01-02] VITALS (9 sets, daily range): BP systolic 100–143; BP diastolic 51–93
--- NOTE | 2020-01-02 04:54 | NUR ---
Pt. rested intermittently during the night with periods of being restless. Sitter at bedside. He has been cooperative , no violent behavior this shift. Able to state name and he's at the hospital otherwise he is disoriented and confused. Arnulfo. soft wrist restraints to prevent pt. from pulling out PICC line and heart monitor. Afebrile. Took po pills at HS without difficulty and ate applesauce before he went to sleep. Denies any pain. Slowly making progress towards care plan goals.
[2020-01-02 04:58] LABS: HEMATOCRIT 39.2 % (42.0-52.0); HEMOGLOBIN 13.4 gm/dL (14.0-18.0); MCH 30.1 pg (26.0-34.0); MCHC 34.1 g/dL (28.0-37.0); MCV 88.4 fL (80.0-100.0); RBC 4.44 mil/uL (4.50-6.00); RDW 13.3 % (10.5-14.5); WBC 12.6 thou/uL (4.0-11.0)
[2020-01-02 05:05] LABS: CALCIUM 9.2 mg/dL (8.5-10.1); CREATININE 0.8 mg/dL (0.7-1.3); POTASSIUM 3.7 mmol/L (3.5-5.1)
[2020-01-02 05:07] LABS: APTT 23.6 Seconds (24.5-32.8); PROTIME 10.2 Seconds (9.3-11.4)
--- NOTE | 2020-01-02 09:35 | NUR ---
REPORT RECEIVED FROM DEIRDRE VALDEZ, CARE TAKEN OVER AT 0700. PT ASLEEP IN BED, SITTER AT SIDE, ASSESSED AT 0815. PT SLEEPING, VSS, B/L WRIST RESTRAINTS CHECKED, DEIRDRE VÁSQUEZ FROM [employer] IN TO TAKE PT FOR PROCEDURE. LEFT MESSAGE WITH BROTHERWAI, NO RETURN CALL FOR CONSENT. FAHAD TO HAVE MD CONSENT.
[2020-01-02 11:17] LABS: CSF COLOR RED; VOLUME 11 ml
[2020-01-02 11:18] LABS: CSF CLARITY TURBID
--- NOTE | 2020-01-02 11:27 | NUR ---
patient transferred to CCU worsening condition. Mother and brother numbers listed in casemgt note 12/28. Patient to rec lumbar pucture today. Patient cont with confusion and has restraints. patient with no health insurance, [employer] is assisting. patient not stable or competent to leave AMA. cont to follow for dc planning.
[2020-01-02 11:30] LABS: CSF RBC 50115 /mm3
[2020-01-02 11:33] LABS: CSF GLUCOSE 62 mg/dL (40-70); CSF PROTEIN 143 mg/dL (15-45)
[2020-01-02 12:18] LABS: CSF EOSINOPHILS 1 %; CSF LYMPHOCYTES 6 %; CSF POLYS 89 %
[2020-01-02 12:20] LABS: CSF WBC 55 /mm3 (0-10)
--- NOTE | 2020-01-02 14:07 | NUR ---
REC CARE OF PT APPROX 1300, RESTRAINTS HAVE BEEN OFF AND ON UNDER PRIOR NURSES CARES REPORT DENOTES PT HAS BEEN COMPLIANT WITH CARES. AMB IN HALLWAY W/THERAPY, SLOWLY AND PAINFULLY. SEE SEPARATE INTERVENTIONS FOR ASSESSMENTS. GAVE EDUCATION ON RESTRAINTS, ENCOURAGED HIM TO ASK FOR ANY NEEDS AND USE CALL LIGHT OR LET SITTER KNOW. WILL RELIEVE SITTER SOON ABLE WITH ONLY ONE DEHYDRATING PRESS OPERATOR ON FLOOR. PT SLEEPY, ANSWERS LOC QUESTION CORRECTLY AND W/EYES CLOSED. WILL CONTINUE TO MONITOR
--- NOTE | 2020-01-03 05:03 | NUR ---
ASSUMED PT CARE AROUND 1910. PT WAS SLEEPING IN BED BUT AROUSABLE. PT WAS APPROPRIATE AND ALERT X ORIENTED TO SELF. PT STILL IN SOFT WRISTS RESTRAINTS WITH SITTER PRESENT. PT HAD NO C/O N/V/D OR SOA. PT C/O PAIN WITH PARTIAL RELIEF WITH PAIN MEDICATIONS. PT RESTED THRU NIGHT WITH MINIMAL INTERRUPTIONS. WILL CONTINUE TO MONITOR PT PER PLAN OF CARE.
[2020-01-03 05:19] LABS: HEMATOCRIT 39.6 % (42.0-52.0); HEMOGLOBIN 13.2 gm/dL (14.0-18.0); MCH 29.7 pg (26.0-34.0); MCHC 33.2 g/dL (28.0-37.0); MCV 89.4 fL (80.0-100.0); RBC 4.43 mil/uL (4.50-6.00); RDW 13.4 % (10.5-14.5); WBC 9.3 thou/uL (4.0-11.0)
[2020-01-03 05:24] LABS: CALCIUM 8.9 mg/dL (8.5-10.1)
[2020-01-03 05:26] VITALS: BP 121/62
--- NOTE | 2020-01-03 07:54 | NUR ---
ASSUMED CARE OF PT AT SHIFT CHANGE; NO REPORTS OF VIOLENCE OR RESISTANCE. PT CAN BE DEMANDING THEN IS IMMEDIATELY APOLOGETIC. EXPRESSES THANKS FOR CARE AT TIMES. SPEECH UNCLEAR AND RAPID, DIFFICULT TO COMPREHEND. HAVING DIFFICULTY SWALLOWING. WILL CONTINUE TO MONITOR AND CONTACT SPEECH, IF NOT ALREADY DONE. OT WORKING WITH PT, STILL HAS TENDENCY TO LEAN TO THE RIGHT. HAS GOOD APPETITE, DOES NOT SHOW ANY RESISTANCEW TO CARES NOR VIOLENCE. SEE SEPARATE INTERVENTIONS FOR ASSESSMENTS
--- NOTE | 2020-01-03 13:50 | NUR ---
PT UNDERWENT LP. NEURO HAD INDICATED THAT THEY ARE TO DO AN MRA. PT CONTINUES ON IV ABX. ST SAW PT AND THEY INDICATED DIET MIGHT NEED DOWNGRADED TO PUREED NECTAR THICK LIQUIDS. PT WORKED WITH PT AND OT THIS DAY. NOTES INDICATED PT IS ABLE TO FOLLOW COMMANDS THIS DAY AND IS LESS IRRITABLE. CM TO FOLLOW INDICATED WITH DC PLANNING.
[2020-01-03 16:30] VITALS: BP 120/68
[2020-01-03 21:06] VITALS: BP 94/77
[2020-01-03 23:13] VITALS: BP 124/81
[2020-01-04 03:00] VITALS: BP 125/69
[2020-01-04 07:11] VITALS: BP 141/85
[2020-01-04 11:08] LABS: CSF VDRL Non Reactive (Non Rea:<1:1)
[2020-01-04 11:30] VITALS: BP 125/67
--- NOTE | 2020-01-04 14:05 | NUR ---
NURSE VIKKI SPOKE WITH [facility] LIAISON AND NOTIFIED THEM THAT PT WOULD LIKELY BE 12 MONTHS DISABLED. VARUN FLOREZ FAXED CLINICAL DOCUMENTATION TO [facility] FOR REVIEW AND PROVIDED PT'S MOTHERS PHONE NUMBER SHOULD THEY NEED ADDITIONAL INFO. PT NOT PATICIPATING CONSISTANTLY WITH THERAPY AT THIS TIME. CONTINUES ON IV ABX. NEURO STILL FOLLOWING. CM TO FOLLOW INDICATED WITH DC PLANNING.
--- NOTE | 2020-01-04 14:46 | PATH ---
[facility] [address] [place] [address] PATHOLOGY RPT PROCEDURE Name: HUMBERTO GUTIERREZ JR Room #: 202-P ADM IN M.R.#: [id number] Admission: 12/23/19 Date of : 84 Discharge: Report #: [id number] Path Case #: [id number] Note [facility] Accession Number: [id number] TESTS RESULT FLAG UNITS REF RANGE LAB Clinician Provided Cytology Information No. of containers..01 Other (Miscellaneous) Source: 01 SPINAL FLUID DIAGNOSIS: 02 SPINAL FLUID NEGATIVE FOR MALIGNANT CELLS. COMMENT, LEUKOCYTES SEEN WITH PREDOMINANCE OF NEUTROPHILS MIGHT SUGGEST AN ACUTE INFLAMMATORY PROCESS OR COULD BE A TRAUMATIC TAP. SUGGEST CLINICAL CORRELATION AND CORRELATE WITH MICROBIOLOGICAL CULTURES. Signed out by: 02 Sherman Wan MD, Pathologist NPI- [id number] Performed by: 01 Hyacinth Bazzi, [employer] ([facility]) Gross description: 01 2.5ML, RED, 1TP /LCS 01/02/2020 1434 Local FLAG LEGEND: L-Low Normal,H-High Normal,LL-Alert Low,HH-Alert High <-Panic Low,>-Panic High,A-Abnormal,AA-Critical Abnormal Performed at: [address] [place] [address] Richard Guidry MD, [address] [place] [id number] Ashish Jensen MD, Specimen Comment: A courtesy copy of this report has been sent to [phone] Specimen Comment: Report sent to Specimen Comment: A duplicate report has been generated due to demographic updates. Performed at: [address], [place], [place] [id number] MD Richard Guidry MD Phone: [phone]
--- NOTE | 2020-01-04 15:47 | NUR ---
ASSESSMENT CHART. PT HAS BEEN SLEEPING ON AND OFF THIS SHIFT. EVALUATED BY SPEECH. IV ABX GIVEN. FAMILY UPDATED ON PT'S PROGRESS. WILL CONTINUE TO MONITOR.
[2020-01-04 16:30] VITALS: BP 136/80
[2020-01-04 20:07] VITALS: BP 132/68
[2020-01-05 04:00] VITALS: BP 146/88
[2020-01-05 05:33] LABS: HEMATOCRIT 37.6 % (42.0-52.0); HEMOGLOBIN 12.7 gm/dL (14.0-18.0); MCH 29.9 pg (26.0-34.0); MCHC 33.8 g/dL (28.0-37.0); MCV 88.4 fL (80.0-100.0); RBC 4.26 mil/uL (4.50-6.00); RDW 12.9 % (10.5-14.5); WBC 17.7 thou/uL (4.0-11.0)
[2020-01-05 05:55] LABS: CALCIUM 9.1 mg/dL (8.5-10.1); POTASSIUM 4.1 mmol/L (3.5-5.1)
--- NOTE | 2020-01-05 08:04 | NUR ---
ASSUME CARE 1900. PT/VITALS STABLE. A/O TO PERSIN, AGITATED, RESTLESS, AND IMPULSIVE. NO REST NOTED THROUGH THE NIGHT. PATIENT IS VERY IMPULSIVE AND IRRITABLE BUT MOSTLY REDIRECTED EASILY. ST NOTED ON MONITOR. NO REST NOTED THROUGH THE NIGHT. RESTRAINTS ACTIVATED FOR PATIETN SAFETY. PLAN IS TO CONTINUE WITH ABX AND MONITOR LEVEL OF [id number]. WILL CONITNUE TO MONITOR AND FOLLOW WIHT POC
[2020-01-05 09:00] VITALS: BP 139/82
[2020-01-05 09:33] LABS: MAGNESIUM 1.9 mg/dL (1.8-2.4); PHOSPHORUS 3.7 mg/dL (2.5-4.9)
[2020-01-05 11:35] VITALS: BP 139/91
[2020-01-05 16:04] VITALS: BP 138/87
[2020-01-05 19:18] VITALS: BP 136/78
--- NOTE | 2020-01-05 19:29 | NUR ---
ASSUMED CARE 0700. RESTLESS, AGITATED, UNITELIGABLE WORDS. RESTRAINTS INPLACE BED ALARM ON. PATIENT NEEDED FREQUENT ORIENTATION. PT COUGH AND ATTEMPT TO CLEAR THROAT AFTER TAKING PO MEDS WITH SPEACH THERAPY PRESENT. DR MEJIA NOTIFIED OF CURRENT STATUS DURING THE MORNING MEAL C ORDER FOR NPO, LORAZAPAM FOR ANXIETY/CEWA AND HALDOL BOTH GIVEN PER ORDERS, NO CHANGE IN RESTLESSNESS. DR PRICE ROUNDED ORDERS CHLORPRAMAZNINE AND DYPHEHYDRAMINE IM. PT ABLE TO REST AND HICCUPS STOPPED. PT BECAME RESTLESS/AGGITATED ONCE AGAIN AT 1800 AND TREATED WITH PRN MEDS FOR AGGITATIONS. REPORTED OFF TO NIGHT NURSE.
[2020-01-05 23:16] VITALS: BP 132/78
[2020-01-06 04:20] VITALS: BP 131/87
[2020-01-06 07:23] VITALS: BP 147/87
[2020-01-06 11:16] VITALS: BP 147/89
[2020-01-06 16:49] VITALS: BP 135/78
--- NOTE | 2020-01-06 18:26 | NUR ---
ASSUMED CARE 0700. IMPROVED ORIENTATION TO SELF AND PLACE. REMOVED RESTRAINTS AT 0800. PT CALM AND SLEEPING, USES CALL LIGHT APPROAPRIATELY. COMPLIANT WITH CARES UNTIL. 1400 WHEN PATIENT BECAME AGGITATED AND VOICED HE WANTED TO LEAVE AMA, REACHED FOR HIS CLOTHS AND DRESSED HIMSELF AND REMOVED TELE AND REFUSED ANY MEDICATION. NOTIFIED DR MEJIA AND SPOKE WITH DR GONCALVES AND DR PRICE. PER DR PRICE PATIENT IS NOT TO LEAVE AMA. PATIENT BECAME COMPLIANT TO MEDICATIONS AT 1500. 1730 PATIENT WANTED TO LEAVE AMA- PT WAS REMINDED OF NEED TO TAKE MEDICATION FOR INFECION IN THE BRAIN. PATIENT AGAIN BECAME COMPLIANT. PATIENT VOICED HIS CONCERNS OF DYING. VOICED HIS CONCERNS OF GOING HOME AND BECOMING "CRAZY" AROUND HIS CHILDREN AND IF HE DID GO HOME HE WANTED TO HAVE MEDCATION THAT WOULD KEEP HIM SEDATED. PT DENIES SOB, PT DENIES CHEST PAIN, ABLE TO USE URINAL FOR VOIDING, NO BM NOTED AT THIS TIME. DECLINED BEING UP TO CHAIR, BED ALARM SET.
[2020-01-06 19:11] VITALS: BP 121/64
[2020-01-07 04:30] VITALS: BP 110/63
--- NOTE | 2020-01-07 05:25 | NUR ---
PT WANTING PAIN MEDS FOR GONZALEZ AND MILK FOR UPSET STOMACH PRN MEDS GIVEN AND NO FURTHER COMPLAINTS THRU THE NOC, RESTING QUIETLY IN BED TURNING SELF, NEEDED ASSIST WITH URINAL, VSS, ALERT TO SELF AND ST SALUD, NEEDS FREQUENT ENCOURAGEMENT AND REORIENTATION, WILL CON'T TO MONITOR PER PPOC.
--- NOTE | 2020-01-07 07:43 | NUR ---
ASSUMED CARE OF PT AT SHIFT CHANGE, QUIET AND STILL RESTING. AGREED TO TYLENOL AND SOME BENADRYL TO AIDE IN SOME ANXIETY. CLEAR AND DIM LUNG SOUNDS, AMB WITH ASSIST, HARD LEAN TO RIGHT. TALKS ABOUT HIS FOUR KIDS. WILL ENCOURAGE WITH THAT INFO IF HE TRIES ANOTHER AMA TACTIC. MOM WILL CALL ON UPDATES. SEE SEPARATE INTERVENTIONS FOR ASSESSMENTS. NO IMPULSIVITY FOR PREFABRICATOR. WILL CONTINUE TO MONITOR. COUGH W/WHITE MUCUS EXPELLED. SWALLOWS PILLS W/APPLESAUCE.
[2020-01-07 08:45] VITALS: BP 94/45
[2020-01-07 13:04] LABS: HEMATOCRIT 37.5 % (42.0-52.0); HEMOGLOBIN 12.6 gm/dL (14.0-18.0); MCH 29.9 pg (26.0-34.0); MCHC 33.6 g/dL (28.0-37.0); RBC 4.21 mil/uL (4.50-6.00); WBC 8.5 thou/uL (4.0-11.0)
[2020-01-07 16:06] VITALS: BP 117/58
--- NOTE | 2020-01-07 17:29 | NUR ---
RN ASSUMED CARE AT 1630. RN IN ROOM TRYING TO ASSESS PATIENT AND PASS MEDICATION. PATIENT REFUSING ORAL MEDICATION AND EYE GTTS. PATIENT OKAY WITH IV AND IM MEDICATION. RN PREPARING MEDICATION AND PARTS CLASSIFIER AT BEDSIDE TO ASSIST. PATIENT TOLD HE WAS GOING TO GET MEDICATION AND BECAME VERY AGITATED AND DISRESPECTFUL. PATIENT YELLING AND ATTEMPTING TO GET OUT OF BED. PATIENT REMINDED THAT HE IS WEAK AND CAN NOT WALK. PATIENT STILL ATTEMPTING TO GET OUT OF BED. CALLING RN " SUPID BITCH, GO BACK TO YOUR COUNTRY. I WANT MY TWIST PACKER AND I WANT TO GO HOME" PER DR PRICE. PATIENT IS UNABLE TO LEAVE AMA AT THIS TIME RELATED TO DECREASED DECSION MAKING CAPABILITIES. PATIENT TAKING ROOM PHONE AND THROWING IT ON THE FLOOR YELLING " I WANT ANOTHER DOCOTOR I DONT WANT IV MEDICATION OR TO TAKE MEDICATION IN MY MOUTH" RN CALLING SECURITY TO ASSIST. SECURITY AT BEDSIDE AND PATIENT VERY AGITATED. PATIENT BROUGHT HIMSELF TO THE FLOOR AND ATTEMPTED TO CRAWL BACKWARDS TRYING TO LEAVE THE UNIT. PATIENT UNAWARE OF DOOR FRAME AND HIT HIS HEAD ON THE WALL. PATIENT CURSING AT NURSE " LEAVE ME ALONE SHES TRYING TO GIVE ME MEDICATION" SECURITY ASSITING PATIENT BACK TO BED AND TALKED TO BY SECURITY TO CALM THE PATIENT DOWN. PATIENT MORE CALM NOW. PAGED TWICE. AT 1730, PATIENT CALLING RN TO THE ROOM REQUESTING MEDICATION FOR A HEADACHE. CLAIMING THAT HE IS NOT ABLE TO SEE PROPERLY. PATIENT MORE COMPLAIANT. DR MEJIA PAGED AGAIN AT 1740 IN REGARDS TO PLAN OF CARE. DR MEJIA CALLING RN BACK. RN EXPLAINIG TO DR THE INCIDENT. NO NEW ORDERS RECIVED. RN WILL CONTINUE TO MONITOR THE PATIENT AND ASSESS NEURO STATUS.
--- NOTE | 2020-01-07 17:48 | NUR ---
RECEIVED PT'S CARE AROUND 1130; PT. ON BED; RESTING EYES CLOSED; EQUAL CHEST RISING NOTICED; SCHEDULED MEDICATION GIVEN; REFUSED EYE DROPS MEDICATIONS; IRRITABLE; IMPULSIVE; ST. "I AM LEAVING RIGHT NOW"; "I AM LEAVING RIGHT NOW"; PULLED LEADS OF FROM CHEST; PHYSICIAN NOTIFIED; ORDERS RECEIVED; D/C TELEMETRY; AFTER CALMING PT.; HE AGREED TO TAKE MEDICATION; MEDICATION GIVEN; PT. RESTING MOST OF THE AFTERNOON; TRANSFER CARE TO DEIRDRE GRAY; AROUND 1700 RN TRYING TO GIVE MEDICATION PT. AGRESSIVE; ST. "I WANT TO LEAVE AMA"; "IT IS MY RIGHT" EDUCATED ABOUT THE NEED OF MEDICATION; RESTLESS; UNSTEADY; BROUGHT HIMSELF TO THE FLOOR; CRAWL BACKWARDS AND BUMP HEAD AGAINS DOOR FRAME; SECURITY IN THE ROOM; PT. DORIAN BACK TO BED; SECURITY ABLE TO CALM PT. DOWN; LEFT ROOM PT. REQUESTED IT;
[2020-01-07 20:41] VITALS: BP 125/78
--- NOTE | 2020-01-08 03:56 | NUR ---
ASSESSMENT DOCUMENTED.PT BEEN RESTING THROUGH THE NOC.PT A/O WITH CONFUSION.FOLLOWS COMMANDS.PT BEEN CALM AND CO-OPERATIVE SO FAR THIS SHIFT.REQUESTING TO BE DISCHARGED AND GO HOME.EDUCATED ON THE NEEDS TO CONT TO HAVE MEDICAL CARE HERE AT THE HOSPITAL.VOICED UNDERSTANDING BUT KEEP ASKING TO GO HOME.NO IMPULSIVE BEHAVIOUR THIS SHIFT.VOIDS VIA URINAL.MEDS GIVEN PER ORDERS.WILL CONT TO MONITOR PER POC.
[2020-01-08 05:15] VITALS: BP 110/73
[2020-01-08 07:30] VITALS: BP 119/59
--- NOTE | 2020-01-08 14:35 | NUR ---
Nutrition: pt seen per followup. Admit with inablity to walk, neurosyphillus, hx meth abuse. Variable weights from 173-187#. PO intake 70-100% of meals on pureed with nectar thick liquid diet. This is safest diet per ST due to pt's poor insight, impulsivity, etc. Noted aggressiveness towared staff /. Pt consuming 50-100% of supplements per documentation. Was receiving supplements all meals but due to good intake, no longer needed. Continue ensure pudding at breakfast only. Follow weight trends. Low risk.
--- NOTE | 2020-01-08 15:51 | NUR ---
NEURO INDICATED THAT PT'S MRI SHOWED IMPROVEMENT. PT CONTINUES ON IV ABX. CARE TEAM INDICATING THAT PT REQUIRES INTERVENTIONS FOR DECONDITIONING. 5N FOLLOWING. AWAITING PSYCH INPUT FOR CAPACITY. CM HAD FORM THAT PT NEEDS TO SIGN FOR ASSISTANCE FOR MADICAID APPLICATION. CM TO FOLLOW UP WITH CARE TEAM REGARDING DISHCARGE PLANNING.
[2020-01-08 16:30] VITALS: BP 98/58
--- NOTE | 2020-01-08 17:55 | NUR ---
ASSUMED CARE AT SHIFT CHANGE, ASSESSMENT DOCUMENTED, VSS AND AFEBRILE. PATIENT COOPERATIVE THROUGHT THE DAY, ASKING TO BE DISCHARGED HOME. SLEPT MOST OF THE DAY. SPOKE WITH PATEL (MOTHER) AND UPDATED HER WITH PATIENT CONDITION. AND WILL CONTINUE WITH POC.
[2020-01-08 19:55] VITALS: BP 144/78
--- NOTE | 2020-01-08 22:35 | NUR ---
PATIENT REQUESTED DOSE OF IVP LASIX THIS EVENING BECAUSE HE STATES THAT BREATHING HAS BEEN MORE DIFFICULT SINCE THE MEDICATION WAS STOPPED. VITAL SIGNS STABLE WITH PATIENT SOUNDING CLEAR/DIMINISHED IN LUNG OLIVEIRA. PRINTING ROLLER POLISHER AND CARDIOLOGY CONTACTED WITH ORDERS RECEIVED FOR ONE TIME ORDER AND CHEST XRAY TO BE TAKEN TOMORROW MORNING. NURSE TO CONTINUE TO MONITOR.
--- NOTE | 2020-01-09 04:41 | NUR ---
PATIENT IS PROGRESSING SLOWLY IN HIS CARE PLAN. VITAL SIGNS STABLE WITH PATIENT HAVING NO COMPLAINTS OF NAUSEA. PATIENT DID COMPLAIN OF HEADACHE WHICH WAS TREATED APPROPRIATELY THROUGH TYLENOL. PLEASANTLY CONFUSED THROUGHOUT SHIFT. PATIENT WAS ABLE TO STATE NEEDS WHEN QUESTIONED BY NURSE. CONTINUE PLAN OF CARE.
[2020-01-09 04:45] VITALS: BP 129/77
[2020-01-09 07:30] VITALS: BP 113/86
[2020-01-09 09:00] VITALS: BP 109/82; BP 113/73
--- NOTE | 2020-01-09 09:15 | NUR ---
ASSUMED CARE THIS MORNING, AND PATIENT REMAINS CONFUSED AND FORGETFUL, ASSESSMENT DOCUMENTED AND VSS. PATIENT WAS WORKING WITH OT, PATIENT HIT HIS HEAD ON THE SIDERAIL OF THE BED, VSS AND NO INJURY OBSERVED. DR GRAFF NOTIFIED AND INCIDENT REPORT FILED BY OT. DR JEFF AT BEDSIDE ASSESSING PATIENT, AND WILL CONTINUE TO MONITOR PATIENT.
--- NOTE | 2020-01-09 09:42 | NUR ---
Incident report completed: Attempted to see patient for O.T. Patient agreed to transfer from bed to recliner next to bed for breakfast; however, after sitting up on edge of bed, patient refused to transfer and insisted on eating while sitting on edge of bed. Bed alarm was on and this O.T. went to the bathroom to dump out water in a tub in case patient wanted to wash his face. As this O.T. re-entered the room, patient was observed to fall to his right on the bed and hit his head on the end of the bed. Patient then laid down on his right side. Called for RN who came immediately and assessed that patient was not injured.
[2020-01-09 11:04] LABS: CALCIUM 9.8 mg/dL (8.5-10.1); CREATININE 0.9 mg/dL (0.7-1.3); POTASSIUM 3.9 mmol/L (3.5-5.1)
[2020-01-09 12:00] VITALS: BP 117/78
--- NOTE | 2020-01-09 13:20 | NUR ---
NEUROLOGY INDICATED THEY ANTICIPATE FOLLOW UP CT HEAD WITHOUT CONTRAST AND A REPEAT MRI OF THORACIC AND LUMBER SPINE WITH AND WITHOUT CONTRAST. PT CONTINUES ON IV ABX. PT STILL INSONSISTANTLY PARTICIPATING IN PT AND OT. ST SAW PT FOR FOLLOW UP AND PT REMAINS ON PUREED DIET NECTAR THICK LIQUIDS. CM TO CONTINUE TO FOLLOW INDICATED WITH DC PLANNING.
[2020-01-09 17:28] VITALS: BP 146/76
--- NOTE | 2020-01-09 19:40 | NUR ---
Pt transfered to unit per bed from at 1710 in stable condition.Pt was quiet and sleepy opun arrival but arousable.Dinner given with evening meds and well tolerated.Bed alarm in use with bed in low postion and call light withing reach.Will continue to monitor.
[2020-01-09 22:44] VITALS: BP 123/81
[2020-01-10 04:22] VITALS: BP 104/72
--- NOTE | 2020-01-10 04:26 | NUR ---
Assumed pt care @194. pt a&ox2. pt sleepy but arousable. pt refused his PO meds. v/s stable. fall prec in place. no s/s of distress. will cont to monitor
[2020-01-10 07:30] VITALS: BP 115/71
--- NOTE | 2020-01-10 13:13 | NUR ---
PT STILL NEEDING A COUPLE OF DAYS TO COMPLETE IV ABX. STILL BEING SEEN BY THERAPY. CARE TEAM INDICATING THAT PT WILL NEED POST ACUTE REHAB NEEDS UPON DC. 5N FOLLOWING. MEDICAID APPLICATION BEING COMPLETED. [employer] TO PROVIDE CM WITH COPY ONCE SUBMITED. CM AWAITING DIRECTION FROM PSYC ON COMPETENCY AND NEXT STEPS. CM TO FOLLOW INDICATED WITH DC PLANNING.
--- NOTE | 2020-01-10 15:38 | NUR ---
[facility] SUBMITTED PT'S MEDICAID APPLICATION THIS AFTERNOON. CM HAD PAPER COPY SHOULD IT BE NEEDED TO PROVIDE FOR PLACEMENT PURPOSSES. CM TO FOLLOW INDICATED WITH DC PLANNING.
[2020-01-10 17:11] VITALS: BP 119/82
[2020-01-10 19:30] VITALS: BP 117/66
--- NOTE | 2020-01-10 19:51 | NUR ---
PT CARE ASSUMED AT 0700. A&Ox2 TIME AND PERSON. PT IS ON PUREED AND NECTAR THICK. DR. BEARD IS TO BE NOTIFIED IF THERE ARE ANY PSYCH ISSUES GOING ON. PT INSISTED ON GOING AMA TODAY, PT RECEIVED A ONE TIME IM DOSE TO CALM HIM DOWN. THIS WAS SUCCESFUL. SOON HE AWOKE HE WENT RIGHT BACK TO WANTING TO GO AMA. HE IS NOT ABLE TO MAKE DECISSIONS AND IS ON A PSYCH HOLD. HE IS OK TO DISCHARGE ON DAY 14 OF ANTIBIOTICS WHICH IS COMPLEETE ON 01/12. FALL PROTOCOL IN PLACE. IMPULSICE. USES THE URINAL. UP WITH ONE ASSIST. CALL LIGHT IN REACH.
--- NOTE | 2020-01-11 02:39 | NUR ---
ASSUMED PT CARET APPROX 2330.PT ASLEEP AT THE TIME.MEDS ADMINISTERED ORDERED WITH NO PROB.SWALLOW PREACUTIONS MAINTAINED.PT CONT ON IV ABX ORDERED.NO BEHAVIORAL ISSUES NOTED CRISTIANO FAR.PT RESTING QUIETLY ON HIS BED AT THIS TIME.FALL PRECAUTIONS IN PLACE,CALL LGHT WITHIN REACH.
[2020-01-11 05:02] VITALS: BP 111/64
[2020-01-11 07:25] VITALS: BP 118/78
--- NOTE | 2020-01-11 15:07 | NUR ---
CM SPOKE WITH CARE TEAM PT REQUIRES CONTINUED REHAB SERVICES. 5N FOLLOWING BUT AREN'T CERTAIN IF THEY'LL BE ABLE TO ACCEPT DUE TO ERRATIC PARTICIPATION WITH THERAPY. CM ATTEMPTED PT TO PT'S MOTHER AND LEFT VM. CM ASKED DC ELECTRIC POWER LINE EXAMINER TO FAX REFERRALS TO [facility], [facility] FOR REVIEW FOR POSSIBLE ADMISSION. CM HAS PRINTED MEDICAID APPLICATION THAT CAN BE PROVIDED TO FACILITIES SHOULD THEY NEED IT. CM TO FOLLOW INDICATED WITH DC PLANNING.
--- NOTE | 2020-01-11 15:21 | NUR ---
FAXED REFERRAL TO [facility] SPOKE WITH LAKSHMI IN ADM SHE RECEIVED REFERRAL AND WILL REVIEW. FAXED REFERRAL TO [facility] ADM. [facility] THEY DENIED REFERRAL CAN'T MEET PT'S NEEDS TOO MUCH FINANCIAL RISK. FAXED REFERRAL TO [facility] RECEIVED CONFIRMATION AND LEFT MSG WITH KATELYNN IN ADM. DP TO FOLLOW.
[2020-01-11 17:15] VITALS: BP 125/82
--- NOTE | 2020-01-11 18:21 | NUR ---
Assumed pt care this am, pt is very confused and impulsive, would get off the bed with out calling and attempted to pull PICC line out aseveral times through out the shift, trigger for aggitated behaviour is when would call and talk to the pt. Pt insists that he wasnt to go home AMA, pt is not of sound mind to make decisions for himself. Pt is only alert to self, maintained pureed diet and on nectar thick liquids. Hydration and nutrition encouraged, Pt uses the urinal, plan is for abx to finish on the 01/13/20, IM of onlanzapine was givne when pt was out of control, insisting he wants to go AMA and pulling his PICC line out. POC followed, no signs or verbalizations of distress have been noted. Fall precuations in place.
[2020-01-11 18:37] VITALS: BP 136/65
--- NOTE | 2020-01-12 03:01 | NUR ---
PT AWAKENS TO NAME AND RESPONDS TO PROMPTS APPROPRIATELY. PT DENIES PAIN AND SOB. FLACC OF 0. PT RESTING IN BED THROUGHOUT SHIFT, REPOSITIONING INDEPENDENTLY. PT TOLERATING PO INTAKE OF NECTAR THICK FLUIDS WITH COMPLAINT THAT 'ITS NASTY'. NO DIFFICULTY SWALLOWING OR SIGN OF ASPIRATION NOTED. ENCOURAGED PT TO NOTIFY STAFF FOR ALL NEEDS. CALL LIGHT WITHIN REACH, BED ALARM ON, BED IN LOWEST POSITION, SITTER IN PLACE. WILL CONTINUE TO MONITOR.
[2020-01-12 08:59] VITALS: BP 111/69
[2020-01-12 09:47] LABS: ABSOLUTE NEUTROPHILS 5.4 thou/uL (1.4-8.2); BASOPHILS 0.3 % (0.0-2.0); EOSINOPHILS 6.3 % (0.0-3.0); HEMATOCRIT 42.5 % (42.0-52.0); HEMOGLOBIN 14.2 gm/dL (14.0-18.0); LYMPHOCYTES 23.6 % (24.0-44.0); MCH 29.9 pg (26.0-34.0); MCHC 33.5 g/dL (28.0-37.0); MCV 89.2 fL (80.0-100.0); MONOCYTES 8.5 % (1.0-8.0); PLATELET COUNT 416 thou/uL (150-400); POLYS 61.3 % (36.0-66.0); RBC 4.77 mil/uL (4.50-6.00); RDW 12.8 % (10.5-14.5); WBC 8.9 thou/uL (4.0-11.0)
[2020-01-12 09:57] LABS: ALBUMIN 3.3 g/dL (3.4-5.0); APTT 27.8 Seconds (24.5-32.8); CALCIUM 9.8 mg/dL (8.5-10.1); CREATININE 0.9 mg/dL (0.7-1.3); POTASSIUM 3.8 mmol/L (3.5-5.1); PROTIME 10.2 Seconds (9.3-11.4); TOTAL BILIRUBIN 1.1 mg/dL (<0.1-1.0); TOTAL PROTEIN 7.8 g/dL (6.4-8.2)
[2020-01-12 11:14] VITALS: BP 141/77
[2020-01-12 11:39] LABS: CSF CLARITY CLEAR; CSF COLOR COLORLESS; VOLUME 11 ml
[2020-01-12 11:47] LABS: CSF GLUCOSE 61 mg/dL (40-70); CSF PROTEIN 79 mg/dL (15-45)
--- NOTE | 2020-01-12 11:51 | EKG ---
[facility] [place] [address] ELECTROCARDIOGRAM REPORT Name: HUMBERTO GUTIERREZ Room #: 435-P ADM IN M.R.#: [id number] Admission: 12/23/19 Attend Phys: Miguel Ángel Gonsalez MD Discharge: Date of : 84 Report #: [id number] THIS REPORT FOR: cc: FAM - No family physician/PCP FAM - No family physician/PCP Lino Garcia MD ~ THIS REPORT FOR: //name// [facility] ED Test Date: 2019-12-23 Test Time: 19:35:55 Pat Name: HUMBERTO GUTIERREZ Department: Room: [facility] Gender: M Medical Claims Representative: [facility] : 1980 Requested By: Cale Dinh Order Number: [id number] MD: Lino Garcia Measurements Intervals [place] Rate: 99 P: 56 [place]: 142 QRS: 68 QRSD: 98 T: 54 QT: 333 QTc: 428 Interpretive Statements Sinus rhythm Probable left atrial enlargement Compared to ECG 05/23/2017 16:19:55 Left ventricular hypertrophy no longer present Electronically Signed On 12-24-2019 9:59:13 CDT by Lino Garcia [email or web address] <ELECTRONICALLY SIGNED> By: Lino Garcia MD 12/24/1957 34 34 Lino Garcia MD /[facility]
--- NOTE | 2020-01-12 11:59 | EKG ---
[facility] [place] [address] ELECTROCARDIOGRAM REPORT Name: HUMBERTO GUTIERREZ Room #: 435-P ADM IN M.R.#: [id number] Admission: 12/23/19 Attend Phys: Miguel Ángel Gonsalez MD Discharge: Date of : 84 Report #: [id number] THIS REPORT FOR: cc: SOPHIE - No family physician/PCP SOPHIE - No family physician/PCP Jose Perry MD ~ THIS REPORT FOR: //name// [facility] Test Date: 2019-12-27 Test Time: 09:57:09 Pat Name: HUMBERTO GUTIERREZ Department: Room: [facility] P Gender: M Basket Mender: RICHARD : 1980 Requested By: Miguel Ángel Gonsalez Order Number: [id number] MD: Jose Perry Measurements Intervals [place] Rate: 98 P: 65 DC: 150 QRS: 106 QRSD: 96 T: 51 QT: 339 QTc: 433 Interpretive Statements Sinus rhythm Probable left atrial enlargement Right axis deviation Compared to ECG 12/23/2019 19:35:55 Right-axis deviation now present Electronically Signed On 12-27-2019 11:23:30 CDT by Jose Perry [email or web address] <ELECTRONICALLY SIGNED> By: Jose Perry MD 12/27/19 [id number] Jose Perry MD /EPI
[2020-01-12 12:13] LABS: CSF RBC 21 /mm3; CSF WBC 4 /mm3 (0-10)
--- NOTE | 2020-01-12 15:26 | NUR ---
FA[facility]ED RE[facility]ERRAL TO [facility] RECEIVED CONFIRMATION AND LEFT MSG WITH ADM. WILL F/U WITH FACILITY ON SUNDAY 01/14.
--- NOTE | 2020-01-12 15:54 | NUR ---
Assumed pt care this amm pt was calm but would have bouts sof anxiety and would state that he wants to go home, currently with a sitter in the room. Pt went down to have a lumbar tap done, pt was compliant in staying flat on the bed post tap. MRI is scheduled for tomorrow am as per MRI. Diet and medications are well tolerated, medications need to be taken with apple sauce. Fall precautions in place, POC latosha santos no signs or verbalizatiosn of distress have been noted.
--- NOTE | 2020-01-12 17:09 | NUR ---
Pt to have repeat MRI and LP per ID. Last dose of iv atb today. Working with therapy but inconsistent. Sitter in place. [employer] liason indicated that the pt's medicaid tony was submitted and is pending. She will contact the pt's mother and try to initiate SSI/SS disability application process either via phone interview or online tony if the pt's mother is able to hlep with this. [facility] is following along for possible acute rehab stay. Ltc placement referrals sent to several facilities per the dc liaison planner. No responses yet.
[2020-01-12 17:16] VITALS: BP 106/70
[2020-01-12 19:38] VITALS: BP 110/72
--- NOTE | 2020-01-13 02:40 | NUR ---
pt care assumed at 1930 with pt in bed with sitter at bedside .pt is on bedrest.pt is alert and oriented to self.pt is on puree diet and nectar thicken liquid.pt has a picc line double lumen on earlene.pt is to have MRI today.pt appeared to be in no acute distress.will continue to monitor per poc
[2020-01-13 06:12] VITALS: BP 122/59
[2020-01-13 10:28] VITALS: BP 121/66
[2020-01-13 16:35] VITALS: BP 124/77
[2020-01-13 19:08] VITALS: BP 129/76
--- NOTE | 2020-01-13 19:41 | NUR ---
Assumed pt care this am, still with a sitter at the bedside. Would insists through out the day that he wanted to go home and wanted to get the results of the MRI that was done early in the am. Pt was not as impulsive today since no call were received from the girlfriend today. Diet and medications are well tolerated, POC followed, no signs or verbalizations of distress have been noted. VS have been stable through out the shift. Endorsed to the night nurse.
[2020-01-13 19:42] VITALS: BP 126/88
[2020-01-13 20:00] VITALS: BP 112/47
--- NOTE | 2020-01-14 02:00 | NUR ---
PT LYING IN BED. VOIDING PER URINAL. SITTER AT BEDSIDE. DENIES PAIN. RESTING COMFORTABLY. NO NEEDS VOICED. FREQUENT OBSERVATION.
[2020-01-14 05:00] VITALS: BP 120/62
[2020-01-14 08:26] VITALS: BP 108/70
--- NOTE | 2020-01-14 17:50 | NUR ---
VSS-AFEBRILE. LUNGS DIMINISHED IN ALL OLIVEIRA BILATERALLY-ROOM AIR. C/O GENERALIZED BODY ACHES AND PAINS THROUGHOUT SHIFT, MEDICATED WITH TYLENOL WITH NO REPORTED RELIEF. STATES THAT "HE DOESMT FEEL GOOD", AND THAT HE IS NAUSEOUS AND CONSTANTLY IN PAIN. OCCASIONAL USES PROFANITY, AND IS RUDE TO STAFF. MEDICATED NEEDED FOR ANXIETY AND AGGRESSIVENESS, THESE WORKED WELL TO CALM HIM. CONSUMED 100% OF MEALS, DESPITE REPORTS OF NAUSEA. NO EPISODES OF INCONTINENCE. REMAINS IMPULSIVE AND WEAK, SITTER AT BEDSIDE. ORIENTED TO PERSON AND PLACE, BUT STILL HAS PERIODS WHERE STATEMENTS DONT MAKE SENSE. FALL PRECAUTIONS IN PLACE.
[2020-01-14 19:06] VITALS: BP 113/70
[2020-01-15 04:35] VITALS: BP 107/66
--- NOTE | 2020-01-15 07:38 | NUR ---
Followup: Extended admission since 12/22, toxic metabolic encephalopathy. Wts were variable 173-187 lb, however drop to 171 lb on 01/12. Requires puree diet with nectar thick liquids, ST following. Consistently eating 100% of meals. Will add supplements back onto all trays since pt was consuming these prior. Continue to track wts and intake. Low nutrition risk.
--- NOTE | 2020-01-15 07:59 | NUR ---
PT APPEARS TO HAVE SLEPT WELL THRO THE NOC.SITTER IN ROOM.
[2020-01-15 11:08] LABS: CSF VDRL Non Reactive (Non Rea:<1:1)
--- NOTE | 2020-01-15 15:22 | NUR ---
PT A&OX4 WITH SOME CONFUSION. AMBULATES WITH STANB BY ASSIST AND IS UNSTEADY. IS CALM TODAY THOUGH DID ASK FOR ANTI ANXIETY MEDS TODAY. SLEEPING MOST OF THIS DAY. PT STATED HE JUST WANTS TO GO HOME AND BECAME A ALMOST TEARY EYED. NO AGITATION NOTED THUS FAR. REMAINS ON 1:1 OBSERVATION. WILL CONT POC.
--- NOTE | 2020-01-15 16:04 | NUR ---
CM SPOKE WITH CARE TEAM THIS DAY HOSPITALISTS INDICATING PT IS MEDICALLY STABLE ARRANGED POST ACUTE CARE. PT, OT, AND ST INDICATING THAT PT WOULD BENEFIT FROM POST ACUTE CARE STAY. CM FOLLOWED UP WITH PT AND THEY INDICATED THAT PT PT TO DC TO COMMUNITY SETTING IT WOULD BE AT LEVEL FOR [place]. ST SAW PT THIS DAY AND INDICATED THAT HE STILL NEEDS PUREED DIET WITH NECTAR THICK LIQUIDS. CM SPOKE WITH DR. PRICE AND SHE INDICATED THAT PT IS PROGRESSING AND CLEARING. VIKKI AND DR. PRICE SPOKE WITH PT REGARDING RECOMMENDATIONS AND HIS THOUGHTS ON DISHCARGE PLANNING. PT INDICATED HE WANTED TO DISCHARGE TO HIS LISTED ADDRESS WITH HIS UNCLE WAI. CM AND DR. PRICE ASKED HOW WE COULD GET IN CONTACT WITH UNCLE WAI AND PT INDICATED YOU CAN'T HE DOESN'T HAVE A PHONE. PT INDICATED THAT IT WOULD BE ALRIGHT FOR CM TO FOLLOW UP WITH HIS MOM TO DISCUSS NEEDS AND OPTIONS UPON DC. CM CALLED PT'S MOTHER AND LEFT VM AWAITING RESPONSE. 5N STILL FOLLOWING. VIKKI AND DR. PRICE HAD SPOKEN TO PT ABOUT REHAB AND NEED FOR PT TO PARTICIPATE IN AN EFFORT TO BE ABLE TO GET BETTER TO POSSIBLY RETURN HOME. DR. PRICE STILL ADJUSTING PSYCH MEDS. PT REMAINS WITH 1:1 SITTER. CM TO FOLLOW INDICATED WITH DC PLANNING.
[2020-01-15 18:00] VITALS: BP 100/55
--- NOTE | 2020-01-15 18:28 | NUR ---
SITTER IN PT'S ROOM WITNESSED PT SHAKING IF WAS HAVING A SEIZURE FOR APPROX. 20 SEC. PT RETURNED TO BASE LINE AFTER AND ASKED SOMERTHING FOR HIS HEADACHE, I OFFERED TYLENOL AND HE STATED THAT WONT WORK. DR. GRAFF NOTIFIED AND ASKED ME TO CONTACT NEUROLOGY. DR. BERRY CALLED AND RETURNED CALL AND ORDERED EEG FOR 01/16/20.
[2020-01-15 19:06] VITALS: BP 98/60
--- NOTE | 2020-01-16 02:36 | NUR ---
PT REMAINS WITH SITTER 1:1. SLEEPING MOST OF THE TIME. AROUSABLE. SEIZURE PRECAUTIONS IN PLACE. ROOM AIR. AFEBRILE. VSS.SWALLOWED HS MEDS OKAY.FALL PREC IN PLACE.
[2020-01-16 04:32] VITALS: BP 105/67
[2020-01-16 08:27] VITALS: BP 128/77
--- NOTE | 2020-01-16 14:46 | NUR ---
VIKKI SPOKE WITH PT'S MOTHER THIS MORNING. SHE INDICATED THAT PT CAN'T RETURN TO THE ADDRESS HE HAD BEEN STAYING AT WITH HIS SIG OTHER [place] AND HIS BROTHER [place] [id number] "IT'S A DRUG HOUSE SIG OTHER IS ON [place] AND BROTHER IS ON [place]. IF HE RETURNS THERE HE WILL CONTINUE TO USE DRUGS. SHE INDICATED THAT PT'S UNCLE WAI WHO HAD BEEN AT THE ADDRESS HE HAD LISTED ON [address] IS GOING TO [place] TO CARE FOR HIS WHO HAD STAGE 4 BREAST CANCER. PT'S MOM INDICATED SHE WOULD BE WILLING TO BE PT'S DPOA IS HE ELECTED HER. SHE INDICATED SHE WOULD BE ABLE TO HAVE PT COME STAY WITH HER UPON DC EVEN AT WC LEVEL ON A MODIFIED DIET. THAT SHE COULD PROVIDE NEAR 24/7 SUPERVISION BUT THAT SHE IS WORKING TO FIND A NEW PLACE TO LIVE AND WOULDN'T BE ABLE TO ACCOMADATE PT FOR 2-3 WEEKS. CM CALLED AND SPOKE WITH PT AND INFORMED HIM OF ALL OF THIS. PT INDICATED HE WANTED TO LEAVE HOSPITAL TODAY THAT HE WAS GOING BY HIS UNCLE. CM EXPLAINED THAT PT ISN'T ABLE TO DISHCARGE AMA AT THIS TIME. AND THAT CM WOULD NOTIFY CARE TEAM AND FOLLOW UP WITH PT. CM RECIEVED PAPERWORK FOR PT'S DISABIITY. MOTHER INDICATED SHE WOULD BE WILLING TO HELP COMPLETE PAPERWORK. CM HADN'T BROACHED THIS WITH PT IT REQUIRES HIS SIGNITURE. DR. PRICE STATES THAT PT IS NEARING APPROPRIATNESS FOR ELECTING DPOA. PT HAD SEZUIRE ACTIVITY YESTERDAY EVENING EEG BEING DONE TODAY AND NS FOLLOWING UP WELL. CM TO FOLLOW INDICATED WITH DC PLANNING.
--- NOTE | 2020-01-16 15:51 | NUR ---
F/U WITH [facility] SPOKE WITH NORA IN ADM HE HAS REFERRAL AND WILL HAVE DON REVIEW. DP TO FOLLOW.
[2020-01-16 16:29] VITALS: BP 126/69
--- NOTE | 2020-01-16 17:19 | NUR ---
PT A&OX4. PICC LINE INTACT IN [place]. SLEEPING MOST OF THE DAY. SITTER IN PLACE. PT BECAME AGITATED TODAY AND STATED HE WAS GOING HOME. SITTER STATED HE JUST GOT OFF THE PHONE WITH A FAMILY MEMBER. TALKED PT DOWN AND GAVE IV ATIVAN. HE DID CALM DOWN AND ATE AND WENT BACK TO SLEEP. WILL CONT POC.
[2020-01-16 19:41] VITALS: BP 122/68
--- NOTE | 2020-01-17 01:59 | NUR ---
ASSESSED AT START OF SHIFT PT SLEEPING. 1:1 SITTER BY BEDSIDE. EVENING MEDS GIVEN WITH THICK LIQUID AND PT ERIK IT WELL. FALL PREC AND SEIZURE PRECAUTIONS IN PLACE. VSS WILL CONT TO MONITOR TILL EOS.
[2020-01-17 04:26] VITALS: BP 106/66
[2020-01-17 09:13] VITALS: BP 136/80
--- NOTE | 2020-01-17 10:58 | NUR ---
PT CARE ASSUMED AT 0700. A&Ox1 TO SELF. PT HAD A SHOWER THIS AM WITH OT. OT MENTIONED THAT PATIENT STATED THAT HE DOES NOT FEEL THE TEMPERATURE DIFFERENCE ON HIS LEFT SIDE. I DID CONFIRM THIS WITH THE PATIENT AND NOTIFIED NEURO AND HOSPITALIST. STAT CT OF THE HEAD IS BEING PERFORMED. PICC LINE DOUBLE LUMEN FLUSHES WELL AND ASPIRATES BLOD. NO REDNESS OR EDEMA NOTED. PT IS STILL IMPULSIVE. DIET PUREED AND NECTAR THICK FLUIDS. PT ON SEIZURE PRECAUTIONS. FALL PROTOCOL IN PLACE. 1:[address] LIGHT IN PLACE.
[2020-01-17 12:54] VITALS: BP 118/73
--- NOTE | 2020-01-17 15:35 | NUR ---
PT WORKED WITH ALL THREE DICIPLINES OF THERAPY THIS DAY. PT HAD ASKED THEREAPISTS ABOUT GOING TO ACUTE REHAB. NURSE ASSISTED IN SIGNING AUTHORIZATIONS FOR [employer] TO ASSIST IN APPLYING FOR DISABILITY. CM S[facility] TO [facility]. CM TO FOLLOW UP WITH PT ABOUT COMPLETEING DPOA. CM WILL SEND UPDATED INFO TO [facility] JUST IN CASE. CM TO FOLLOW INDICATED WITH DC PLANNING.
[2020-01-17 16:43] VITALS: BP 103/57
[2020-01-17 19:58] VITALS: BP 103/68
--- NOTE | 2020-01-18 03:56 | NUR ---
ASSESSED AT START OF SHIFT. PT RESTING IN BED. EVENING MEDS GIVEN WITH THICK LIQUID PT ERIK IT WELL. VERY CALM TONIGHT NOT IMPULSIVE OR RESTLESS. 1:1 SITTER BY BEDSIDE. DL SUBCLAVIAN PICC INTACT AND SALINE LOCK. WILL CONT TO MONITOR TILL EOS.
[2020-01-18 04:13] VITALS: BP 110/55
[2020-01-18 07:35] VITALS: BP 115/61
--- NOTE | 2020-01-18 15:04 | NUR ---
CARE TEAM INDICATED THAT PT WAS DOING WELL ENOUGH FOR 1:1 S[address] TO BE DISCONTINUED. [address] PRICE FOLLOWED UP WITH PT THIS AFTERNOON AND HE HAD GOTTEN SOME BAD NEWS REGARDING FAMILY. PT IS AWARE OF EFFORTS FOR HIM TO GO TO OUR ACUTE REHAB UNIT AND IF PARTICIPATING BETTER WITH THERAPIES. DR. PRICE DISCUSSED COMPLETEING DPOA THIS AFTERNOON AND PT WASN'T RECEPTIVE WILL REATTEMPT TOMORROW. CM TO FOLLOW INDICATED WITH DC PLANNING.
[2020-01-18 16:07] VITALS: BP 93/58
--- NOTE | 2020-01-18 18:29 | NUR ---
PATIENT RESTING IN BED. ALERT XS 3-4. WAS GIVEN IM ZYPREXIA PATIENT HAD BECAME ANIOUS AND WANTED TO GO HOME. SECURITY WAS CALLED.THIS NURSE WAS AT LUNCH. DR PRICE WAS CALLED SHE TALKED WITH PATIENT AND THIS NURSE GAVE PRN IM. PATIENT HAS REMAINED CALM THROUGH REST OF SHIFT.
[2020-01-18 19:05] VITALS: BP 152/84
--- NOTE | 2020-01-19 01:27 | NUR ---
ASSUMED PT CARE AT 1900. PT SLEEPING MAJORITY OF SHIFT, JUST WOKE UP TO TAKE PM MEDS. PT COOPERATIVE AND KIND THIS EVENING. ANTICIPATING D/C TO REHAB TOMORROW. NO OTHER SIGNIFICANT CHANGES.
[2020-01-19 04:05] VITALS: BP 112/52
[2020-01-19 07:02] VITALS: BP 104/73
--- NOTE | 2020-01-19 11:59 | NUR ---
Received awake on bed. Due medications given as presribed, able to swallow meds w/o difficulty. On room air. A+Ox3. On pureed diet, nectar thick fluids- tolerating well; no nausea, no vomiting and no abdominal pain noted. Continent of bowel and bladder- able to use urinal- output measured and recorded accordingly. With R upper arm, 2 lumen PICC line in place- dressing C/D/I- pt seen by IV nurse today, to remove PICC line if pt will be discharged to rehab today and not on IV meds. Assisted in ADLs. Vital signs stable. Off sitter for 24 hrs at 10am- physician and CM informed. Possible discharge today at [facility], a/w orders. Falls bundle in place. Swallowing precautions observed. On seizure precatutions. To continue monitoring patient.
[2020-01-19] MEDS ORDERED: MIRALAX119 GM PO (12:37)
[2020-01-19] MEDS ORDERED: AMOXIL 875 MG875 M1 PO (12:37)
[2020-01-19] MEDS ORDERED: REMERON 30 MG T30 M1 PO (12:37)
[2020-01-19] MEDS ORDERED: COLACE100 MG PO (12:37)
[2020-01-19] MEDS ORDERED: DIVALPROEX SOD500 M1 PO (12:37)
[2020-01-19] MEDS ORDERED: NICOTINE1 EAC2 TRANSDERM (12:37)
[2020-01-19] MEDS ORDERED: TYLENOL325 MG PO (12:37)
[2020-01-19] MEDS ORDERED: OLANZAPINE10 M2 IM (12:37)
[2020-01-19] MEDS ORDERED: ZYPREXA 5 MG TAB5 M2 PO (12:37)
[2020-01-19] MEDS ORDERED: VITAMIN B-1100 M2 PO (12:37)
== END 2020-01-19 14:48 | DRG 602 ==
LOC: ER 19:34 → 4S 23:59 → EROBS 23:59 → 4S 12-24 00:30 → 2N 01-01 18:17 → 4S 01-09 16:33
PROVIDERS: Emergency Medicine; Hospitalist; Internal Medicine; Psychiatry & Neurology Neurology; Specialist; ADMIT Internal Medicine
DX: L03.213 Periorbital cellulitis (principal); G06.0 Intracranial abscess and granuloma; G92 Toxic encephalopathy; A52.3 Neurosyphilis, unspecified; E78.5 Hyperlipidemia, unspecified; H00.033 Abscess of eyelid right eye, unspecified eyelid; F17.210 Nicotine dependence, cigarettes, uncomplicated; R13.10 Dysphagia, unspecified; K04.7 Periapical abscess without sinus; J32.9 Chronic sinusitis, unspecified; I10 Essential (primary) hypertension; H10.89 Other conjunctivitis; R41.0 Disorientation, unspecified; R27.0 Ataxia, unspecified; R06.6 Hiccough; A52.9 Late syphilis, unspecified; F41.9 Anxiety disorder, unspecified; F19.10 Other psychoactive substance abuse, uncomplicated; I25.2 Old myocardial infarction; Z86.19 Personal history of other infectious and parasitic diseases; Z82.49 Family history of ischemic heart disease and other diseases of the circulatory system; Z71.51 Drug abuse counseling and surveillance of drug abuser; Z91.14 Patient's other noncompliance with medication regimen; Z86.14 Personal history of Methicillin resistant Staphylococcus aureus infection; T50.905A Adverse effect of unspecified drugs, medicaments and biological substances, initial encounter; Y92.89 Other specified places as the place of occurrence of the external cause
CPT/HCPCS: 10081; 10102; 10194; 27000

== ENCOUNTER 2020-01-19 13:09 | Inpatient (IN) | payer OTHER ==
[~2020-01-19] VITALS: Ht 182.9 cm; Wt 82.6 kg
--- NOTE | ~2020-01-19 | H ---
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 Please see the full history and physical dictation as noted. Agree with the findings as indicated. The patient has had a complicated stay. Please see discharge summary from acute care. MRI showed a right enhancing lesion of the right medullary area. He has a right conjunctivitis and keratitis and also had an orbital cellulitis. ID and Neurology has been following. He also has multiple dental cavities and will need outpatient dental followup. He has had seizures. EEG is being done and is noted to be on seizure precautions now. Psychiatry has been following as he is attempting to leave [place] many times and has been deemed not able to make his own decisions although his mentation is improving. He has been placed on p.o. antibiotics. Of note is that his drug screen on admission was positive for methamphetamine and he had a sitter on and off during his acute stay. He has had significant functional decline from his premorbid status and has been admitted for acute in-hospital inpatient rehabilitation. PAST MEDICAL HISTORY: As noted. Please see the history and physical regarding social history, allergies, and habits. I have noticed he also is a current every day smoker. REVIEW OF SYSTEMS: Some frustration with being here. Did not offer any current complaints of chest pain, shortness of breath or abdominal discomfort. Please see the full review of systems. PHYSICAL EXAMINATION: GENERAL: The patient was seen later yesterday. He was admitted to the acute inpatient rehab [facility]. NEUROLOGIC: He tried to leave AMA again and the hospitalist and Psychiatry have been involved. He has been more compliant in that regard at the time I saw him. Awake, oriented, and very poor dentition. We will follow basic 1 step commands. Decreased insight, some prolonged latency to his responses. Skin with multiple tattoos. Tends to be impulsive. [facility] [address] [place] [address] HISTORY AND PHYSICAL Name: HUMBERTO GUTIERREZ Room #: 514-P [facility] IN M.R.#: [id number] Admission: 01/19/20 Attend Phys: Zia Frey MD Discharge: Date of : 84 Report #: [id number] HEENT: Facies appeared symmetric. CHEST: Sounded clear to auscultation. CARDIOVASCULAR: Regular rate and rhythm. ABDOMEN: Bowel sounds positive. No tenderness. GENITOURINARY AND RECTAL: He does have the indwelling [place]. EXTREMITIES: He has functional range of motion of the upper extremities and lower extremities. Strength is probably a grade 3+ to 4-. Transfers have been min assist. He needs assist to try to take some steps with a walker, has decreased insight. He is on a nectar thick diet with pureed foods. ASSESSMENT: 1. 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 2. Gait ataxia. 3. Dysphagia, on thickened liquids. 4. Apical dental abscesses. 5. Resolution of right periorbital cellulitis/traumatic injury. 6. Hypertension. 7. Methamphetamine abuse. 8. Medical noncompliance. PLAN: The patient has been admitted for acute in-hospital inpatient rehabilitation. From a post-admission physician evaluation perspective, there are no relevant changes since the preadmission screening. Please see the above review of prior and current medical and functional conditions and comorbidities. Please see the patient's previous and current functional status. As risk of complications, he has multiple medical comorbidities as noted above. Initial plan of care involves the interdisciplinary acute inpatient rehabilitation program. Measurable functional goals would be to hopefully improve his overall cognition, functional mobility, swallowing and safety issues that he can hopefully return back to the home setting. Prognosis is reasonably good. Estimated length of stay probably at least 10 days to 2 weeks. Potential barriers would include his multiple medical comorbidities and decreased functional status. The patient is not allowed to leave AMA unless cleared by Psychiatry first. The patient does have a supportive mother, who is planning on allowing him to return back home with her post-discharge per report. She, however, will only be able to provide very minimal physical assistance. By: [id number] Zia Frey MD /nt
[~2020-01-19 13:09] MED LIST changes: +AMOXIL 875 MG875 M1 PO; +COLACE100 MG PO; +DIVALPROEX SOD500 M1 PO; +MIRALAX119 GM PO; +NICOTINE1 EAC2 TRANSDERM; +OLANZAPINE10 M2 IM; +REMERON 30 MG T30 M1 PO; +TYLENOL325 MG PO; +VITAMIN B-1100 M2 PO; +ZYPREXA 5 MG TAB5 M2 PO
[2020-01-19 15:15] VITALS: BP 135/85
[2020-01-19 15:19] VITALS: BP 130/85
--- NOTE | 2020-01-19 16:09 | NUR ---
PT DISCHARGED TO [facility] ACUTE INPATIENT REHAB THIS DAY. PLAN IS FOR PT TO REHAB HOME WITH HIS MOTHER MIRELA. CM TO FOLLOW INDICATED WITH DC PLANNING.
--- NOTE | 2020-01-19 19:30 | NUR ---
PT ADMITTED TO ROOM 514 FOR ACUTE ENCEPHALOPATHY SECONDARY TO MEDULLARY JAGUAR LESSION/ CUT OFF MAN SYPHYLIS. PT INABILITY TO WALK. REPORTS LIVE IN A HOUSE WITH HIS GF WHO IS CURRENTLY PREGRANT. PT ANXIOUS TO GO HOME AND CRYING, I WANT TO GO HOME. OFFERED SUPPORTIVE CARE. DISCUSSED ABOUT CARE PLAN IN REHAB TO HELP HIM ABLE TO WALK AGAIN BEFORE DISCHAGE. PT WAS ABLE TO CALM DOWN AND PARTICIPATES WITH STAFF. REASSESSMENT PER CHART. NOTICED SOME DRY RASHES AROUND PERINEAL AREAS. SKIN VERY DRY ON THE PALMS ON HIS HANDS AND HIS FEETS. LOTION APPLIED. PT DENIES PAIN. ALERT AND ORIENTED X4. ON PURRED WITH NECTAR THICKEN FLUID. PT HAS NO DRY COUGH. LUNG SOUNDS CLEAR. LAST BM WAS THIS AM. DENIES PAIN, SOB. VSS ON RA. PT SIGNED CONTRACT FOR SAFETY. ATE 100% DINNER. PHYSICIANS CONSULTS WERE NOTIFIED. PT RESTING IN BED QUIETLY. GAVE REPORT TO NIGHT NURSE TO CONTINUE TO MONITOR. JAIRO WAS NOTIFIED AND ORDERED SOME STANDARDS MEDS. . PATIENT IS ALERT AND ORIENTED X4. PATIENT CAMEJO, BODY MAKER MACHINE SETTER ARE EQUAL. LUNGS ARE CLEAR AND DEMINISHED. ABD IS SOFT WITH BSX4. PATIENT HAS A GASTELUM CATHETER IN PLACE DRAINING DARK YELLOW URINE. PATIENT WOULD LIKE THE CATHETER DC'D. PATIENT HAS A S.L. IN HIS LEFT F.A. UP IN BED FOR DINNER. FALL AND SAFETY PROTOCOLS IN PLACE. DENIES PAIN AT THIS TAVO. PT/OT/ST OTT TO BE DONE IN THE A.M. CALL LIGHT IN REACH. WILL CONTINUE TO MONITER.
[2020-01-19 19:38] VITALS: BP 111/67
[2020-01-20 06:18] LABS: HEMOGLOBIN 13.5 gm/dL (14.0-18.0); MCH 29.7 pg (26.0-34.0); MCHC 33.7 g/dL (28.0-37.0); MCV 88.3 fL (80.0-100.0); RBC 4.53 mil/uL (4.50-6.00); RDW 12.7 % (10.5-14.5); WBC 8.1 thou/uL (4.0-11.0)
[2020-01-20 06:32] LABS: CALCIUM 9.6 mg/dL (8.5-10.1); CREATININE 0.9 mg/dL (0.7-1.3)
[2020-01-20 08:00] VITALS: BP 133/76
--- NOTE | 2020-01-20 14:12 | NUR ---
ASSUMED CARES AT 0700. PT ORIENTED TO PERSON, PLACE AND SITUATION. C/O HEADACHE, ACETAMINOPHEN ADMINISTERED NEEDED. C/O NAUSEA, ZOFRAN ADMINISTERED. VITALS REMAIN STABLE. REDNESS CONTINUES ON RIGHT EYE. PT EATING 100% OF HIS MEALS WITH ST SUPERVISION, UPGRADED TO THIN LIQUIDS WITH SUPERVISION ONLY AND TOLERATES WELL. OLD PICC SITE ON RIGHT UPPER ARM REMAINS DRY AND INTACT. PT UP WITH MAX ASSIST, GB AND WALKER. Q1H VISUAL CHECKS. CALL LIGHT WITHIN REACH. FALL PRECAUTIONS IN PLACE
[2020-01-20 20:13] VITALS: BP 104/64
--- NOTE | 2020-01-21 02:25 | NUR ---
ASSUMED CARE OF PT AT 1915. PT IS LETHARGIC. IS AROUSABLE. PT HAS BEEN SLEEPING SINCE THE START OF THIS SHIFT. PT WOKE UP TO TAKE MEDS & THEN FELL BACK TO SLEEP SOON AFTER. IS ON ROOM AIR. IS STABLE. DENIED PAIN. FALL PRECAUTIONS & HOURLY ROUNDING MAINTAINED THIS SHIFT. LABS & VITALS REVIEWED. WILL CONTINUE TO MONITOR.
[2020-01-21 07:53] VITALS: BP 128/68
--- NOTE | 2020-01-21 17:17 | NUR ---
ASSUMED CARE AT 0700, PT ALERT AND ORIENTED TO PERSON AND PLACE, IMPULSIVE AND AGITATED AT TIMES. VSS, O2 ON RA. AROUND 11AM PT C/O MIGRAINE 07/13, DR. RAMOS WAS NOTIFIED AND IMITREX X 2 ORDERED. DURING THAT TIME PT BECAME AGITATED AND STATED THAT HE WAS GOING TO LEAVE AMA, PT ALSO STATED THAT HIS MOM WAS COMING TO PICK HIM UP. IN COMMUNICATION WITH PT MOTHER, SHE STATED THAT SHE IS NOT COMING FOR PT AND DESIRED THAT HE STAY AT HOSPITAL WHERE HE CAN GET CARE. PT CONTINUED TO BE AGITATED AND KEPT GETTING OUT OF BED WITHOUT HELP, MD GIVE OK FOR IM ZYPREXA. COMMUNICATED TO PT THE BENEFITS OF GETTING CARE AT HOSPITAL AND TRYED TO CALM PT DOWN. P/T ALSO CAME AND WALKED WITH PT. PT EVENTUALLY CALMED DOWN AFTER LUNCH AND AGREED TO BOTH IMITREX AND ZYPREXA. AFTER 2PM PT CALLED AND STATED THAT THE MIGRAINE PAIN INCREASED AND HE WAS ALSO HAVING FACIAL PAIN, SECOND DOSE OF IMITREX AND TYLENOL GIVEN WITH NO RELIEF. DR. RAMOS WAS NOTIFIED AND ONE TIME DOSE OF NORCO 5/325 GIVEN TO PT. PT WAS SLEEPING ON REASSEMENT. PT CONTINENT OF B&B, USES URINAL, DARK YELLOW URINE NOTED, LAST BM 01/19/20, ON QUIANA COLACE. BED IN LOWEST POSITION, CALL LIGHT WITHIN REACH, WILL CONTINUE TO MONITOR PER POC.
[2020-01-21 19:10] VITALS: BP 99/55
--- NOTE | 2020-01-22 02:28 | NUR ---
assumed care at approx 1900 evening 01/20. pt has been sleeping majority of this shift. pt not woken for hs meds as report was given earlier by day RN that pt had been uncooperative and impulsive wanting to leave AMA. pt appears to be sleeping soundly with hourly rounding and close to nurses station. bed alarm on and call light in reach. will continue to monitor.
[2020-01-22 04:13] LABS: ABSOLUTE NEUTROPHILS 2.7 thou/uL (1.4-8.2); BASOPHILS 0.5 % (0.0-2.0); HEMOGLOBIN 13.6 gm/dL (14.0-18.0); LYMPHOCYTES 38.6 % (24.0-44.0); MCH 29.9 pg (26.0-34.0); MCHC 33.9 g/dL (28.0-37.0); MCV 88.4 fL (80.0-100.0); MONOCYTES 7.5 % (1.0-8.0); PLATELET COUNT 273 thou/uL (150-400); POLYS 43.4 % (36.0-66.0); RBC 4.53 mil/uL (4.50-6.00); RDW 12.7 % (10.5-14.5); WBC 6.2 thou/uL (4.0-11.0)
[2020-01-22 04:24] LABS: CALCIUM 9.2 mg/dL (8.5-10.1); CREATININE 0.9 mg/dL (0.7-1.3); POTASSIUM 3.9 mmol/L (3.5-5.1); TOTAL BILIRUBIN 0.4 mg/dL (<0.1-1.0); TOTAL PROTEIN 6.8 g/dL (6.4-8.2)
[2020-01-22 07:30] VITALS: BP 98/52
[2020-01-22] MEDS ORDERED: ZYPREXA 5 MG TAB5 M2 PO (09:51)
[2020-01-22] MEDS ORDERED: DIVALPROEX SOD500 M1 PO (09:51)
[2020-01-22] MEDS ORDERED: COLACE100 MG PO (09:51)
[2020-01-22] MEDS ORDERED: AMOXIL 875 MG875 M1 PO (10:19)
--- NOTE | 2020-01-22 10:24 | NUR ---
carline notified by MD that pt, his mom jimena are ready to dc home today, he will need meds, possible wheel chair, and follow up appointments. carline spoke with pt mom jimena, she is coming in today for training with therapy, per his mom she not able to do physical assistance, she has walker for him at home. eduction via phone call with his mom rt vouch medication and needs appointment for dentist, pcp, infection and neurology " that is fine just let me know when it is and i will take him"/mom jimena. safe net packet to be sent home with pt. chart review, noted he was independent prior to hospital, h/o drug use, lived with his brother and andres sig other who his expecting. no past rehab or hh. no dme in the past. no current primary md or insurance. referral and tony completed by [email or web address] prior to acute rehab. will cont following as needed for dc needs. [facility] [employer] [phone].
[2020-01-22 13:37] VITALS: BP 98/52
--- NOTE | 2020-01-22 18:36 | NUR ---
ASSUMED CARE AT 0700, PT A&O X 2, IMPULSIVE AND AGITATED. VSS P2 ON RA. PT STATED THAT HE WANTED TO LEAVE, PT MOTHER ALSO STATED THAT SHE WAS COMING TO PICK HIM UP TODAY. NOTIFIED DR. RODRIGES, CASE MANAGEMENT AND DR. PRICE WITH PSYCH, PROVIDERS SPOKE TO PT AND MOM AT BEDSIDE. PT GIVEN THE OK TO BE DISCHARGED TODAY AFTER FAMILY (MOTHER AND UNCLE) DOES TRAINING WITH PHYSICAL THERAPY.
--- NOTE | 2020-01-22 18:44 | NUR ---
PATIENT LEFT FACILITY AROUND 1400 WITH MOTHER AND UNCLE. NURSE ACCOMPANIED PT TO MEDICAL MALL ENTRANCE AND LEFT WITH FAMILY.
== END 2020-01-22 14:00 | disposition home or self-care (01) | DRG 70 ==
PROVIDERS: Nurse Practitioner Family; ADMIT Physical Medicine & Rehabilitation
DX: G93.40 Encephalopathy, unspecified (principal); G06.0 Intracranial abscess and granuloma; A52.3 Neurosyphilis, unspecified; L03.213 Periorbital cellulitis; R27.0 Ataxia, unspecified; R13.10 Dysphagia, unspecified; K04.7 Periapical abscess without sinus; I10 Essential (primary) hypertension; F15.10 Other stimulant abuse, uncomplicated; R56.9 Unspecified convulsions; G93.89 Other specified disorders of brain; E78.5 Hyperlipidemia, unspecified; F19.10 Other psychoactive substance abuse, uncomplicated; J32.9 Chronic sinusitis, unspecified; G43.909 Migraine, unspecified, not intractable, without status migrainosus; Z91.030 Bee allergy status; Z91.19 Patient's noncompliance with other medical treatment and regimen
CPT/HCPCS: 10112

== ENCOUNTER 2020-02-14 22:20 | Emergency (ER) | payer OTHER ==
[~2020-02-14] VITALS: Ht 182.9 cm; Wt 81.7 kg
[2020-02-14] MEDS ORDERED: ZOFRAN ODT4 MG PO (23:37)
[2020-02-14 23:49] VITALS: BP 141/92
== END 2020-02-14 23:51 | disposition home or self-care (01) ==
LOC: ER 22:20
DX: S09.90XA Unspecified injury of head, initial encounter (principal); E78.5 Hyperlipidemia, unspecified; I25.2 Old myocardial infarction; F17.210 Nicotine dependence, cigarettes, uncomplicated; Z91.030 Bee allergy status; W18.39XA Other fall on same level, initial encounter; Y93.89 Activity, other specified; Y92.89 Other specified places as the place of occurrence of the external cause; Y99.8 Other external cause status

== ENCOUNTER 2021-06-11 08:11 | Emergency (ER) | payer OTHER ==
[~2021-06-11] VITALS: Ht 182.9 cm; Wt 97.5 kg
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
[~2021-06-11 08:11] MED LIST changes: +ZOFRAN ODT4 MG PO
[2021-06-11] MEDS ORDERED: HYDROCODON-ACE1 EAC7 PO (09:00)
[2021-06-11 09:23] VITALS: BP 124/80
== END 2021-06-11 09:23 | disposition home or self-care (01) ==
LOC: ER 08:11
DX: S82.202A Unspecified fracture of shaft of left tibia, initial encounter for closed fracture (principal); E78.5 Hyperlipidemia, unspecified; I48.91 Unspecified atrial fibrillation; F17.210 Nicotine dependence, cigarettes, uncomplicated; Z79.899 Other long term (current) drug therapy; Z98.890 Other specified postprocedural states; Z91.030 Bee allergy status; V29.3XXA Motorcycle rider (driver) (passenger) injured in unspecified nontraffic accident, initial encounter; Y93.89 Activity, other specified; Y92.89 Other specified places as the place of occurrence of the external cause; Y99.8 Other external cause status